=== PATIENT | female | born 1945 | race Caucasian/White ===

== ENCOUNTER → 2017-10-01 15:00 | Outpatient (CLI) | payer MEDICARE, SELFPAY ==
--- NOTE | 2017-10-01 | LES_PTH ---
PATIENT: MANJIT ESTRELLA LOC: [facility] U#:[id number] AGE/SX: 79/F ROOM: RE10/01/[address]: Dr. Heriberto Mcgovern MD : 1945 BED: DIS: SPEC #: [id number] RECD: 10/01/17 15:13 STATUS: ZEINA FOX #: [id number] PRABHA: 10/01/17 00:[address]: Heriberto Mcgovern DEPT: SURGICAL PATHOLOGY RECD BY: Brendan Fan ENTERED: 10/02/17 13:02 SP TYPE: Lesion OTHR DR: Dr. Hugo Lima MD Tissues: Skin of eyelid, NOS Procedures: Surgery Specimen Level IV HEADER OPERATION: Biopsy left nasal lid PRE-OP DIAGNOSIS: High suspicion for basal cell cancer TISSUE SUBMITTED: Left nasal eyelid MICROSCOPIC DIAGNOSIS Left nasal eyelid lesion, biopsy: Fragments of basal cell carcinoma. Solar elastosis. AM:nanda 10/03/17 COMMENT Case has been reviewed in consultation with Dr. Hughes who concurs with the above diagnosis. IDC:SJ MICROSCOPIC DESCRIPTION Slides are reviewed. GROSS DESCRIPTION Received in fixative is one container labeled with the patient's name and designated left lower lid. The specimen consists of two pieces of lopez-white soft tissue measuring in aggregate 0.7 x 0.3 x 0.1 cm. The specimen is totally submitted in one cassette. / SJ:nanda 10/02/17 TC:0 CPT: 65394
== END ==
PROVIDERS: Visit Provider Ophthalmology
DX: C44.119 Basal cell carcinoma of skin of left eyelid, including canthus (principal); L57.8 Other skin changes due to chronic exposure to nonionizing radiation
CPT/HCPCS: 88305

== ENCOUNTER 2020-07-07 23:49 | Emergency (ER) | payer MEDICARE, MEDICAID, SELFPAY ==
[2020-07-07 23:51] VITALS: BP 182/90; PULSE 80; RESP 15; TEMP 36.1; O2SAT 98; BMI 27.4
[2020-07-07 23:54] VITALS: BP 182/90; PULSE 79; RESP 16; O2SAT 97
--- NOTE | 2020-07-08 00:41 | CT_ITS ---
STUDY: CT BRAIN WITH AND WITHOUT CONTRAST REASON FOR EXAM: Female, 75 years old. Left-sided headache with dental infection RADIATION DOSAGE (If Supplied By Facility): CTDIvol = ( 44.99 ) mGy, DLP = ( 1580.97 ) mGycm TECHNIQUE: Transaxial CT imaging of the brain was performed pre and post contrast administration. The examination was performed with intravenous administration of IV 50mL Isovue-370. Individualized dose optimization techniques were used for this CT. COMPARISON: None. FINDINGS: Normal soft tissue structures. Normal calvarium. Normal size ventricles and extra-axial spaces for the patient''s age. There is minimal bilateral periventricular and subcortical white matter hypoattenuation which is symmetric in distribution. Normal basal ganglia and thalami. Normal brainstem. Normal cerebellum. There is no intracranial hemorrhage. There are no findings of an acute ischemic infarction. No enhancing lesion. There is minimal mucoperiosteal thickening of the paranasal sinuses. CT/Brain/Head W/WO Contrast IMPRESSION: 1. No evidence of an acute intracranial abnormality. 2. Mild bilateral periventricular and subcortical white matter chronic small vessel disease 3. Minimal chronic paranasal sinus disease Electronically Signed: Mark Alford MD at 2:20 EDT Tel , Service support ,
[2020-07-08 01:01] LABS: Absolute Lymphocyte Count 2.44 X10^3/uL (0.83-4.51); Absolute Neutrophil Count 4.2 X10^3/uL (2.0-7.7); Basophil# 0.07 X10^3/uL; Basophil% 0.9 % (0-1); Eosinophil# 0.21 X10^3/uL; Eosinophils% 2.7 % (0-5); Hematocrit 39.7 % (37-47); Lymphocyte # 2.44 X10^3/ul (0.83-4.51); Lymphocyte % 31.5 % (19-41); Mean Corp Hgb Conc 32.7 g/dL (32-36); Mean Corpuscular Hgb 29.7 pg (27.0-32.0); Mean Corpuscular Volume 90.6 fL (81-99); Mean Platelet Vol. 9.7 fl (6.2-12.0); Monocyte# 0.78 X10^3/uL; Monocyte% 10.1 % (0-10); NRBC Flagged by Analyzer 0 % (0-5); Neutrophil # 4.22 X10^3/uL (2.7-7.7); Neutrophil % 54.5 % (47-70); Platelet Count 358 K/mm3 (150-450); RBC Distribution Width CV 13.6 % (11.6-14.6); RBC Distribution Width SD 45.3 fl (35.1-43.9); Red Blood Count 4.38 M/mm3 (4.2-5.4); White Blood Count 7.7 K/mm3 (4.4-11.0)
--- NOTE | 2020-07-08 01:08 | EX.ED.DYSGE1 ---
HPI History of Present Illness Chief Complaint: Headache Informant: patient Onset/Context/Timing Onset: Weeks (1) Context: Gradual Onset Timing: Continuous Quality: aching Location: left side of head Current Severity: Moderate Maximum Severity: Moderate Worsened by: lying on left side Relieved by: nothing Associated Symptoms Associated Symptoms: dental pain Narrative Narrative: Patient states the left mandibular row of teeth have been really bothering her for several weeks. In the last week she has developed a headache gradual in onset that has been persistent, radiating into her left ear. She denies any focal neurologic symptoms, loss of consciousness, seizure activity, or vision changes/loss. She states she occasionally gets a tremor in one of her legs but she does not have that now. She denies any fevers or chills. She denies any sinus pressure/swelling or nasal discharge. She denies any confusion. No neck pain or stiffness. PFSH PFSH Medical History Chronic pain GERD (gastroesophageal reflux disease) History of skin cancer Hypertension Migraines Smoker Home Medications amoxicillin 500 mg PO TID #30 tab 07/08/20 [Rx Last Taken Unknown] hydrochlorothiazide 25 mg PO DAILY 07/08/20 [History Last Taken Unknown] lisinopril 40 mg PO DAILY 07/08/20 [History Last Taken Unknown] tramadol 50 mg PO Q6H PRN #12 tab 07/08/20 [Rx Last Taken Unknown] Allergy/AdvReac Type Severity Reaction Status Date / Time codeine Allergy Upset Verified 07/07/20 23:51 Stomach Tetanus Vaccines and Toxoid Allergy NEEDS Verified 07/07/20 23:51 FOLLOW-UP Surgical History Hx of hysterectomy Social History Smoking Status: Heavy Smoker (>10/day) ROS ROS ED Constitutional Constitutional ED: Denies chills or fever(s) Eyes Eyes: Denies change in vision, diplopia or discharge from eye(s) ENT ENT ED: Reports as per HPI, dental pain, ear pain left, headache(s) and mouth pain; Denies discharge from eye(s), ear discharge, epistaxis, facial pain, hoarseness, lip swelling, rhinorrhea or sore throat Cardiovascular Cardiovascular: Denies chest pain or palpitations Respiratory/Chest Respiratory/Chest: Denies cough or dyspnea Gastrointestinal Gastrointestinal: Denies abdominal pain, diarrhea, nausea or vomiting Genitourinary Genitourinary ED: Denies dysuria or hematuria Musculoskeletal Musculoskeletal: Denies back pain or neck pain Integumentary Denies abscess or rash Neurologic Neurologic: Reports as per HPI, headache(s) and tremor(s); Denies paresthesias, syncope, vertigo or weakness Psychiatric Psychiatric: Denies anxiety or suicidal thoughts EXAM Physical Exam Const Vital Signs: 07/07/20 23:51 07/07/20 23:54 Temperature 97.0 F L Temperature Source Temporal Pulse Rate 80 79 Respiratory Rate 15 16 Blood Pressure 182/90 H 182/90 H Blood Pressure Mean 120 120 Pulse Ox 98 97 Oxygen Delivery Method Room Air Room Air Positive well nourished and well developed General Appearance ED: well developed and NAD HEENT Reports TM's clear and moist mucous membranes HEENT Narrative: Left mandibular row of teeth are severely decayed. There is no discharge or bleeding or evidence of gingivitis but they are all tender. There is no abscess. No trismus. Floor of mouth is nondistended and soft, nontender. No objective facial asymmetry. No maxillary sinus tenderness or purulent nasal discharge. Mild tenderness at the left zygomatic arch only, no temporal tenderness. Mastoid is normal in appearance without erythema or swelling, it is nontender. No periauricular lymphadenopathy or submental or lymphadenopathy. No scalp rashes or lesions. Other than teeth, and minor zygomatic arch tenderness which is normal-appearing, basically HEENT exam is unremarkable. normocephalic and atraumatic Tympanic Membrane ED: Yes TM's clear Eyes PERRL and EOMs intact bilaterally Neck full ROM, no lymphadenopathy, supple and no JVD Chest Wall inspection of chest normal and palpation of chest normal Resp normal respiratory effort and clear to auscultation bilaterally Cardio regular rate, regular rhythm and no murmurs GI non-tender and non-distended Auscultation: normoactive bowel sounds Palpation: soft Back/Spine no CVA tenderness General Back: other FROM Extremity normal to inspection General Extremety ED: Negative for edema, pulses abnormal or tenderness General Extremity: Negative for edema or pulses abnormal Neuro oriented x3, CN's II-XII intact bilaterally and no sensory deficits noted Sensorium / Orientation: awake and alert Motor Exam: strength 5/5 throughout Psych mental status grossly normal and thought process normal Skin no rashes or lesions noted and no wounds MDM MDM MDM Narrative Medical decision making narrative: Given her dental infection that has been going on for some time and lack of an abscess, I performed CT of the head with and without contrast, to rule out emergent conditions including infection extending to other structures such as the mastoid, brain cavity, sinuses. This was all negative. She does not have temporal tenderness or any abnormality in this area including the temporal artery. She does not have any vision changes and I suspect this is more likely referred pain from her teeth given the negative CT then I do temporal arteritis. Prescribed antibiotics and analgesics and advised to follow-up with a dentist she was given a resource list. Lab Data Attestation: I reviewed the patient's lab results. Labs: Laboratory Results - last 24 hr 07/08/20 07/08/20 00:55 00:55 WBC 7.7 RBC 4.38 Hgb 13.0 Hct 39.7 MCV 90.6 MCH 29.7 MCHC 32.7 RDW Std Deviation 45.3 H RDW Coeff of Kirt 13.6 Plt Count 358 MPV 9.7 Immature Gran % (Auto) 0.300 Neut % (Auto) 54.5 Lymph % (Auto) 31.5 Dauphin % (Auto) 10.1 H Eos % (Auto) 2.7 Baso % (Auto) 0.9 Absolute Neuts (auto) 4.2 Absolute Lymphs (auto) 2.44 Nucleated RBC % 0 Sodium 138 Potassium 3.6 Chloride 106 Carbon Dioxide 29.0 Anion Gap 3 L BUN 17 Creatinine 0.93 Estim Creat Clear Calc 41.91 Est GFR (MDRD) Af Amer 75 Est GFR (MDRD) Non-Af 62 BUN/Creatinine Ratio 18.3 Glucose 112 H Calcium 9.2 Radiography Diagnostic Testing: Radiology Impression Brain CT 07/08/20 00:41 IMPRESSION: 1. No evidence of an acute intracranial abnormality. 2. Mild bilateral periventricular and subcortical white matter chronic small vessel disease 3. Minimal chronic paranasal sinus disease Electronically Signed: Mark Alford MD at 2:20 EDT Tel , Service support , Discharge Plan Triage Chief Complaint: Headache ED Provider: Julio Enciso Dx/Rx/DC Orders Clinical Impression: Infected dental caries, Cephalgia Instructions: ED Abscess Antibiotic Treatment Only Prescriptions: New amoxicillin 500 mg tablet 500 mg PO TID Qty: 30 RF: 0 tramadol 50 mg tablet 50 mg PO Q6H PRN (Reason: pain) Qty: 12 RF: 0 No Action lisinopril 10 mg Tablet 40 mg PO DAILY RF: 0 hydrochlorothiazide 25 mg Tablet 25 mg PO DAILY RF: 0 Primary Care Provider: Bryn Cardona Referrals: Bryn Cardona MD [Primary Care Provider] - Dentist,Your [STAFF PHYSICIAN] - As soon as possible Activity Restrictions/Additional Instructions: Your blood pressure was high in the emergency department. Make sure you follow-up for recheck when you are feeling better. Disposition Disposition: Home, self care
[2020-07-08 01:14] LABS: Anion Gap 3 (5-15); BUN 17 mg/dL (7-18); BUN/Creat Ratio 18.3 RATIO (10-20); Calcium,Total 9.2 mg/dL (8.5-10.1); Chloride 106 mmol/L (98-107); Creatinine, Serum 0.93 mg/dL (0.55-1.02); EST Glomerular Filtration Rate 62 mL/min (>60); Est Glom Filt Rate - Afr Amer 75 mL/min (>60); Estimated Creatinine Clearance 41.91 ml/min; Glucose 112 mg/dL (74-106); Potassium 3.6 mmol/L (3.5-5.1); Sodium Level 138 mmol/L (136-145)
[2020-07-08] MEDS: AMOXICILLIN 500 MG CAPSULE PO (03:06)
[2020-07-08] MEDS: traMADol 50 MG Tablet PO (03:06)
[2020-07-08] MEDS: Acetaminophen 500 MG Tablet 1000 MG PO (03:06)
[2020-07-08 03:56] VITALS: BP 153/90; PULSE 78; RESP 18; O2SAT 96
== END 2020-07-08 05:19 | disposition home or self-care (01) ==
PROVIDERS: Emergency Provider Emergency Medicine; PCP Family Medicine
DX: K04.7 Periapical abscess without sinus (principal); K02.9 Dental caries, unspecified; I10 Essential (primary) hypertension; K21.9 Gastro-esophageal reflux disease without esophagitis; G89.29 Other chronic pain; Z85.828 Personal history of other malignant neoplasm of skin; Z79.899 Other long term (current) drug therapy; Z87.891 Personal history of nicotine dependence
CPT/HCPCS: 70470; 80048; 85025; 96360; 96361; 99285; J7030; Q9967; A4216

== ENCOUNTER 2022-01-11 04:41 | Emergency (ER) | payer MEDICARE, MEDICAID, SELFPAY ==
[2022-01-11 04:42] VITALS: BP 129/58; PULSE 72; RESP 18; TEMP 36.6; O2SAT 97; BMI 23.4
--- NOTE | 2022-01-11 05:07 | RAD_ITS ---
STUDY: X-RAY - LEFT KNEE REASON FOR EXAM: Female, 76 years old. Injury/Pain TECHNIQUE: 4 view(s) of the knee. COMPARISON: None. FINDINGS: BONES: No fracture demonstrated. Osteopenic. Degenerative changes at all 3 joint compartments. JOINTS: No dislocation. SOFT TISSUES: Unremarkable. RAD/Knee 4 or More Views IMPRESSION: No evidence of fracture. Degenerative changes. Electronically Signed: Ana Maria Smith MD at 5:45 EST ,
--- NOTE | 2022-01-11 05:09 | EX.ED.DYSGE1 ---
HPI History of Present Illness Chief Complaint: Lower Extremity Injury Narrative Narrative: Patient is a 76 year old female with history of hypertension and CKD presenting with worsening left hip and knee pain. Patient states she has had hip and knee pain for years but usually she can take a little Tylenol or ibuprofen and be fine. She notes her symptoms been worse over the past week. She denies any falls or injuries. This morning she got up to use the restroom and her pain was so severe that she could not bear it. She did not fall but she could not get back in bed. She clipped her life alert and was brought to the ER. Did not have anything for pain prior to arrival. Denies any bowel or bladder incontinence. Denies any numbness or tingling. Denies any fever or chills. Has never had her hip or knee pain evaluated. She states she feels fine she does not move but it significantly worse if he is she tries to stand or weight-bear. This week she has been taking more ibuprofen and Tylenol but is not helping with her symptoms like it usually does. No other complaints at this time. Patient lives independently. Uses a cane as needed. PFSH PFSH Medical History Chronic pain GERD (gastroesophageal reflux disease) History of skin cancer Hypertension Migraines Smoker Home Medications hydrochlorothiazide 25 mg tablet 25 mg PO DAILY 07/08/20 [History Last Taken Unknown] lisinopril 10 mg tablet 40 mg PO DAILY 07/08/20 [History Last Taken Unknown] hydrocodone-acetaminophen 5-325mg 5mg-325mg 1 tab PO Q6H PRN pain 3 days #12 tabs 01/11/22 [Rx Last Taken Unknown] prednisone 20 mg tablet 40 mg PO DAILY #8 tabs 01/11/22 [Rx Last Taken Unknown] Allergy/AdvReac Type Severity Reaction Status Date / Time codeine Allergy Upset Verified 01/11/22 04:47 Stomach Tetanus Vaccines and Toxoid Allergy NEEDS Verified 01/11/22 04:47 FOLLOW-UP Surgical History Hx of hysterectomy Social History Smoking Status: Heavy Smoker (>10/day) ROS ROS ED Constitutional Constitutional ED: Denies chills or fever(s) Eyes Eyes: Denies change in vision ENT ENT ED: Denies sore throat Cardiovascular Cardiovascular: Denies chest pain or palpitations Respiratory/Chest Respiratory/Chest: Denies cough Gastrointestinal Gastrointestinal: Denies abdominal pain, diarrhea, nausea or vomiting Genitourinary Genitourinary ED: Denies dysuria or hematuria Musculoskeletal Musculoskeletal: Reports arthralgias and other Details: left hip and knee pain ; Denies back pain or neck pain Integumentary Denies rash Neurologic Neurologic: Denies headache(s), paresthesias or weakness Psychiatric Psychiatric: Denies anxiety Hematologic/Lymphatic Hematologic/Lymphatic: Denies easy bleeding or easy bruising EXAM Physical Exam Const Vital Signs: 01/11/22 04:42 Temperature 97.8 F Temperature Source Temporal Pulse Rate 72 Respiratory Rate 18 Blood Pressure 129/58 H Blood Pressure Mean 81 Pulse Ox 97 Oxygen Delivery Method Room Air Positive well nourished and well developed General Appearance ED: well developed and NAD HEENT Reports moist mucous membranes Negative for trauma Eyes PERRL and EOMs intact bilaterally Neck supple Chest Wall inspection of chest normal Resp normal respiratory effort and clear to auscultation bilaterally Cardio regular rate, regular rhythm and no murmurs GI normal to inspection, nondistended, normoactive bowel sounds and non-tender Extremity Extremity Narrative: Left hip pain, No rotational deformity. Pain with logroll. Pain with range of motion of the knee. No obvious effusion. 2+ bilateral DP pulses. General Extremety ED: Yes tenderness; Negative for edema General Extremity: Negative for edema Neuro oriented x3 and no sensory deficits noted Motor Exam: strength 5/5 throughout Psych mental status grossly normal Skin no rashes or lesions noted and no wounds MDM MDM MDM Narrative Medical decision making narrative: Patient evaluated for worsening of chronic left hip pain. She also has knee pain. Denies any fall or trauma. Is not able to ambulate today because of pain. Pain has been worsening for the past week. Has never really had her hip pain evaluated. She does have pain with range of motion of the hip. Hip x-ray as well knee x-ray obtained interpreted by myself as well as radiology. There is a questionable subtle femoral neck fracture as well as significant degenerative changes. CT of the hip is ordered to further evaluate. This does not show any fracture however there is severe degenerative changes of the left hip. Patient is given a dose of IM morphine in the ER as well as Tylenol. She is able to ambulate but is painful. Patient is offered admission for pain control however she states she would like to go home. Patient is given a walker in the ER. Is placed on a burst of prednisone and also started on a short course of [place] for pain control. Counseled on return precautions. She verbalizes agreement understand this plan. Discharged home in stable condition. Is given orthopedic for outpatient follow-up. Radiography Diagnostic Testing: Clinical Impression(s) from Imaging Studies Knee X-Ray 01/11/22 05:07 IMPRESSION: No evidence of fracture. Degenerative changes. Electronically Signed: Ana Maria Smith MD at 5:45 EST Reading Location ID and State: [id number] / [employer] Tel , Service support , Hip/Pelvis X-Ray 01/11/22 05:20 IMPRESSION: Relative foreshortening of the left femoral neck with no definite fracture visualized. Subtle femoral neck fracture difficult to exclude. CT may be helpful for further evaluation. Severe degenerative changes of the left hip. Electronically Signed: Ana Maria Smith MD at 5:48 EST , Pelvis CT 01/11/22 05:51 IMPRESSION: 1. No evidence of fracture. 2. Severe degenerative changes of the left hip. 3. Mild degenerative changes of the right hip. Electronically Signed: Ana Maria Smith MD at 6:35 EST , Discharge Plan Triage Chief Complaint: Lower Extremity Injury ED Provider: Maylin Ribeiro Dx/Rx/DC Orders Clinical Impression: Joint pain of left hip on movement, Difficulty walking, Acute pain of left knee Instructions: ED Arthralgia Prescriptions: New prednisone 20 mg tablet 40 mg PO DAILY Qty: 8 0RF hydrocodone-acetaminophen 5-325 mg tablet 1 tab PO Q6H PRN (Reason: pain) 3 Days Qty: 12 0RF No Action lisinopril 10 mg Tablet 40 mg PO DAILY hydrochlorothiazide 25 mg Tablet 25 mg PO DAILY Primary Care Provider: Bryn Cardona Referrals: Bryn Cardona MD [Primary Care Provider] - Kin Mendez MD [Med Staff - Active Staff] - As soon as possible Disposition Disposition: Home, Self Care
[2022-01-11] MEDS: Acetaminophen 500 MG Tablet PO (05:10)
--- NOTE | 2022-01-11 05:20 | RAD_ITS ---
STUDY: X-RAY - PELVIS AND LEFT HIP REASON FOR EXAM: Female, 76 years old. Injury/Pain TECHNIQUE: 3 views of the pelvis and hip. COMPARISON: None. FINDINGS: There is foreshortening of the left femoral neck which can be seen with fracture. No definite fracture is visualized. Marked joint space narrowing of the left hip especially at the superior aspect, with subchondral sclerosis and osteophytes. No dislocation of the hips. Degenerative changes lower lumbar spine. RAD/HIP, UNI W/ Pelvis 2-3 Views IMPRESSION: Relative foreshortening of the left femoral neck with no definite fracture visualized. Subtle femoral neck fracture difficult to exclude. CT may be helpful for further evaluation. Severe degenerative changes of the left hip. Electronically Signed: Ana Maria Smith MD at 5:48 EST ,
--- NOTE | 2022-01-11 05:51 | CT_ITS ---
STUDY: CT PELVIS WITHOUT CONTRAST REASON FOR EXAM: Female, 76 years old. hip fracture RADIATION DOSAGE (If Supplied By Facility): CTDIvol = ( 13.97 ) mGy, DLP = ( 449.88 ) mGycm TECHNIQUE: Transaxial imaging of the pelvis was performed with oral contrast, and without intravenous administration of contrast material. Individualized dose optimization techniques were used for this CT. COMPARISON: Left hip x-rays earlier. FINDINGS: No fracture demonstrated. There is severe joint space narrowing of the left hip joint superiorly, with articular surface of the femoral head in direct contact with the acetabulum. Subchondral sclerosis and subchondral cyst formation with osteophytes at the acetabulum and femoral head/neck. Mild degenerative changes of the right hip with subchondral sclerosis and cysts mostly at the acetabular component. No dislocation at the hips. Degenerative changes in the lower lumbar spine. No free fluid or hematoma within the pelvis. CT/Pelvis without IV Contrast IMPRESSION: 1. No evidence of fracture. 2. Severe degenerative changes of the left hip. 3. Mild degenerative changes of the right hip. Electronically Signed: Ana Maria Smith MD at 6:35 EST ,
[2022-01-11] MEDS: Morphine 4 MG/ML Syringe IM (07:18)
[2022-01-11] MEDS: predniSONE 20 MG Tablet 60 MG PO (08:07)
== END 2022-01-11 08:14 | disposition home or self-care (01) ==
PROVIDERS: Emergency Provider Emergency Medicine; PCP Family Medicine; Visit Provider Emergency Medicine
DX: M16.12 Unilateral primary osteoarthritis, left hip (principal); R26.2 Difficulty in walking, not elsewhere classified; F17.200 Nicotine dependence, unspecified, uncomplicated; N18.9 Chronic kidney disease, unspecified; I12.9 Hypertensive chronic kidney disease with stage 1 through stage 4 chronic kidney disease, or unspecified chronic kidney disease; M25.562 Pain in left knee
CPT/HCPCS: 72192; 73502; 73564; 96372; 99284

== ENCOUNTER 2022-01-29 15:23 | Emergency (ER) | payer MEDICAID, MEDICARE, SELFPAY ==
[2022-01-29 15:24] VITALS: BP 133/65; PULSE 73; RESP 16; TEMP 36.8; O2SAT 97; BMI 27.3
--- NOTE | 2022-01-29 15:36 | EX.ED.DYSGE1 ---
HPI History of Present Illness Chief Complaint: Lower Extremity Injury Narrative Narrative: Patient presents with right buttock and groin pain. She has chronic pain in her left hip and I believe she has been favoring her right side and developed pain on that region. No known trauma. No fever or chills. She has no back pain. She has no radicular symptoms. No bowel or bladder compromise. No urinary retention symptoms. PFSH PFSH Medical History Chronic pain GERD (gastroesophageal reflux disease) History of skin cancer Hypertension Migraines Smoker Home Medications hydrochlorothiazide 25 mg tablet 25 mg PO DAILY 07/08/20 [History Last Taken Unknown] lisinopril 10 mg tablet 40 mg PO DAILY 07/08/20 [History Last Taken Unknown] hydrocodone-acetaminophen 5-325mg 5mg-325mg 1 tab PO Q6H PRN pain 3 days #12 tabs 01/29/22 [Rx Last Taken Unknown] meloxicam 15 mg tablet 15 mg PO DAILY 01/29/22 [History Last Taken Unknown] Allergy/AdvReac Type Severity Reaction Status Date / Time codeine Allergy Upset Verified 01/29/22 15:24 Stomach Tetanus Vaccines and Toxoid Allergy NEEDS Verified 01/29/22 15:24 FOLLOW-UP Surgical History Hx of hysterectomy Social History Smoking Status: Heavy Smoker (>10/day) ROS ROS ED ROS Narrative Past medical history: Reviewed Medications: Reviewed Social history: Smoker Review of systems: All systems negative except as indicated General: No fever Cardiovascular: No cyanosis Respiratory: No shortness of breath or cough Gastrointestinal: No abdominal pain Musculoskeletal: As in HPI Skin: No rash Neurological: No memory loss, confusion or any focal weakness Psych: No recent behavioral changes Hematologic: No easy bleeding or easy bruising EXAM Physical Exam Narrative Exam Narrative: Physical exam General: Well nourished, Well developed, No Acute Distress Head: Normocephalic, Atraumatic Eyes: Conjunctiva not pale Cardiovascular: Regular rate, Regular rhythm Respiratory: No distress, CTA bilaterally Abdomen: Soft, Nontender, Nondistended Back: Nontender, Normal Inspection. Negative for: CVA tenderness Extremities: There is buttock tenderness in the SI joint region, as well as groin tenderness. No significant tenderness with logrolling or flexion extension of the hip. 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 This is interpreted by me. Treatment and Re-Evaluation Narrative: Patient is found by radiologist to have some arthritic changes in the SI joint, I believe she likely has sacroiliitis based on my exam. We will treat with renal analgesics, she has an appointment with orthopedics. Discharge Plan Triage Chief Complaint: Lower Extremity Injury ED Provider: Humberto Friend Dx/Rx/DC Orders Clinical Impression: Sacroiliitis, Acute hip pain Instructions: ED Sacroiliitis Prescriptions: New hydrocodone-acetaminophen 5-325 mg tablet 1 tab PO Q6H PRN (Reason: pain) 3 Days Qty: 12 0RF No Action lisinopril 10 mg Tablet 40 mg PO DAILY hydrochlorothiazide 25 mg Tablet 25 mg PO DAILY meloxicam 15 mg tablet 15 mg PO DAILY Primary Care Provider: Bryn Cardona Referrals: Bryn Cardona MD [Primary Care Provider] - 2 Days Disposition Disposition: Home, Self Care
[2022-01-29] MEDS: HYDROcodone Bitartrate/Apap 5/325 Tablet PO (15:40)
--- NOTE | 2022-01-29 15:50 | RAD_ITS ---
STUDY: X-RAY - PELVIS AND RIGHT HIP REASON FOR EXAM: Female, 76 years old. Severe pain TECHNIQUE: 3 views of the pelvis and hip. COMPARISON: None. FINDINGS: There is a non-specific bowel gas pattern. Normal visualized soft tissue structures. There is narrowing with cortical sclerosis and osteophyte formation of the sacroiliac joint consistent with degenerative osteoarthritic changes. Normal bilateral superior and inferior pubic rami. Normal pubic symphysis. Normal bilateral ischial tuberosities. Normal visualized femoral head. Normal acetabulum. There is mild articular joint space narrowing of the hip. There is severe endstage arthrosis of the left hip with obliteration of the joint space superiorly and laterally with subchondral sclerosis and cyst formation on the femoral head and subchondral sclerotic change on the acetabulum. These findings are consistent with AVN. 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
--- NOTE | 2022-01-29 17:37 | ED.RN ---
REVIEWED DC WITH PT. REPORTS VICODIN ISNT TOUCHING PAIN. DR NAVA AWARE AND TALKING WITH PT.
--- NOTE | 2022-01-29 17:55 | CM.ED ---
TARIQ Note Referral Source: MD Referral Reason: Services for patient in the home TARIQ met with patient. Patient said that she used to have housekeeping but her insurance person could not find anyone to help her with the housekeeping. Patient said that she had housekeeping assistance in the past but could not recall the name of the provider. SW asked about what services she needs and patient said light housekeeping and cooking. SW discussed Meals on Wheels and patient said did you ever try the food?. Patient said that she makes a big meal and then puts the small portions away in the freezer for later use. TARIQ gave handout regarding [facility] and explained that it was health couching and patient voiced need for housekeeping and cooking services only. Patient then provided the name of her insurance person which was Mary Daley from [facility] [phone]. TARIQ provided patient with resources on [employer] and educated on assisted living and patient said I know about that. TARIQ will ask high acuity employment case manager to see if she has any resources for patient. TARIQ sent email to Karine Carty regarding patient. TARIQ left voice message for Melody Chicas [phone] regarding patient being seen in the ED. Plan: Resources Provided Shania LAU
[2022-01-29 18:14] VITALS: BP 120/78; PULSE 87; RESP 16; O2SAT 98
--- NOTE | 2022-01-31 11:47 | CM.ED ---
TARIQ Note TARIQ got a voice mail from Mary Daley ([facility]) this morning regarding Jodi Smith. She spoke to patient and patient declined home meals, respite and adult day care. Mary said that they are working with her on staffing opportunities. She requested the discharge summary from the ED and TARIQ faxed the d/c to Mary Daley at [phone] (fax) . Mary's direct number is [phone]. Shania LAU
== END 2022-01-29 18:48 | disposition home or self-care (01) ==
PROVIDERS: Emergency Provider Emergency Medicine; PCP Family Medicine; Visit Provider Emergency Medicine
DX: M46.1 Sacroiliitis, not elsewhere classified (principal); G89.29 Other chronic pain; M25.552 Pain in left hip; I10 Essential (primary) hypertension; F17.200 Nicotine dependence, unspecified, uncomplicated
CPT/HCPCS: 73502; 99284

== ENCOUNTER 2022-02-02 21:29 | Observation (INO) | payer MEDICARE, MEDICAID, SELFPAY ==
[2022-02-02 21:29] VITALS: BP 173/71; PULSE 65; RESP 16; TEMP 36.9; O2SAT 97; BMI 26.9
[2022-02-02] MEDS: fentaNYL 100 MCG/2 ML Ampul 25 MCG IV ×2 (22:00→23:58)
[2022-02-02] MEDS: Ondansetron 4 MG/2 ML Vial IV (22:00)
[2022-02-02 22:02] VITALS: O2SAT 97
[2022-02-02 22:08] LABS: Absolute Lymphocyte Count 1.99 X10^3/uL (0.83-4.51); Absolute Neutrophil Count 2.1 X10^3/uL (2.0-7.7); Basophil# 0.05 X10^3/uL; Eosinophil# 0.12 X10^3/uL; Eosinophils% 2.5 % (0-5); Hematocrit 36.3 % (37-47); Hemoglobin 11.8 g/dL (12.0-15.0); Lymphocyte # 1.99 X10^3/ul (0.83-4.51); Lymphocyte % 40.9 % (19-41); Mean Corp Hgb Conc 32.5 g/dL (32-36); Mean Corpuscular Hgb 30.2 pg (27.0-32.0); Mean Corpuscular Volume 92.8 fL (81-99); Mean Platelet Vol. 9.9 fl (6.2-12.0); Monocyte# 0.62 X10^3/uL; Monocyte% 12.7 % (0-10); NRBC Flagged by Analyzer 0 % (0-5); Neutrophil # 2.08 X10^3/uL (2.7-7.7); Neutrophil % 42.7 % (47-70); Platelet Count 220 K/mm3 (150-450); RBC Distribution Width CV 13.5 % (11.6-14.6); RBC Distribution Width SD 46.4 fl (35.1-43.9); Red Blood Count 3.91 M/mm3 (4.2-5.4); White Blood Count 4.9 K/mm3 (4.4-11.0)
[2022-02-02 22:25] LABS: Anion Gap 3 (5-15); BUN 9 mg/dL (7-18); BUN/Creat Ratio 8.6 RATIO (10-20); Calcium,Total 8.6 mg/dL (8.5-10.1); Chloride 107 mmol/L (98-107); Creatinine, Serum 1.05 mg/dL (0.55-1.02); EST Glomerular Filtration Rate 54 mL/min (>60); Est Glom Filt Rate - Afr Amer 65 mL/min (>60); Estimated Creatinine Clearance 34.92 ml/min; Glucose 98 mg/dL (74-106); Potassium 3.5 mmol/L (3.5-5.1); Sodium Level 138 mmol/L (136-145)
--- NOTE | 2022-02-02 22:25 | RAD_ITS ---
STUDY: X-RAY - LEFT KNEE REASON FOR EXAM: Female, 76 years old. fall TECHNIQUE: 4 view(s) of the knee. COMPARISON: 01/11/2022 FINDINGS: Normal visualized distal femur. Normal visualized proximal tibia and fibula. Normal proximal tibiofibular articulation. There is mild degenerative arthrosis of the medial femorotibial compartment. There is mild degenerative arthrosis of the lateral femorotibial compartment. Normal patellofemoral articulation. 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 The soft tissue structures are unremarkable. RAD/Knee 4 or More Views IMPRESSION: No acute fracture or dislocation. Electronically Signed: Brenadn Bullard MD at 22:54 EST ,
--- NOTE | 2022-02-02 22:25 | RAD_ITS ---
STUDY: X-RAY - RIGHT TIBIA AND FIBULA REASON FOR EXAM: Female, 76 years old. fall TECHNIQUE: 2 view(s) of the tibia and fibula were obtained. COMPARISON: None. FINDINGS: Normal visualized tibia. Normal visualized fibula. The soft tissue structures are unremarkable. RAD/Tibia & Fibula 2 Views IMPRESSION: Normal x-ray examination of the tibia and fibula. Electronically Signed: Brendan Bullard MD at 22:55 EST ,
--- NOTE | 2022-02-02 22:25 | RAD_ITS ---
STUDY: X-RAY - PELVIS REASON FOR EXAM: Female, 76 years old. fall TECHNIQUE: One view of the pelvis was obtained. COMPARISON: 01/29/2022 FINDINGS: There is a non-specific bowel gas pattern. Normal visualized soft tissue structures. Normal bilateral iliac wings, sacroiliac joints and visualized sacrum. Normal visualized bilateral superior and inferior pubic rami. Normal pubic symphysis. Normal ischial tuberosities. Normal visualized right femoral head. Normal right acetabulum. There is mild articular joint space narrowing of the right hip. There are osteoarthritic changes of the left femoral head with marginal osteophyte formation. There is osteoarthritic spur formation of the left acetabular rim. There is severe articular joint space narrowing of the left hip. RAD/Pelvis 1 or 2 Views IMPRESSION: 1. No acute fracture or dislocation. 2. Mild right hip arthrosis. 3. Severe left hip arthrosis. Electronically Signed: Brendan Bullard MD at 22:53 EST ,
--- NOTE | 2022-02-02 22:25 | RAD_ITS ---
STUDY: X-RAY - RIGHT FEMUR REASON FOR STUDY: Female, 76 years old. fall TECHNIQUE: 2 view(s) of the femur. COMPARISON: None. FINDINGS: Normal visualized femur. Normal visualized soft tissue structure. RAD/Femur Min 2 Views IMPRESSION: Normal x-ray examination of the femur. Electronically Signed: Brendan Bullard MD at 22:56 EST ,
--- NOTE | 2022-02-02 22:45 | ED.VIS.FALL ---
HPI HPI - Fall History of Present Illness Chief Complaint: Fall Informant: patient and EMS Occured/Mechanism Occurred: Today Narrative Narrative: Patient present secondary to lower extremity pain after 2 falls at home today. She states that she fell in the tub and then fell after getting out of her bath. She took a pain pill this afternoon but tonight has had increasing pain in her lower extremities and had difficulty getting out of her chair. She called EMS. She does live alone. She denies striking her head or loss of consciousness. PFSH PFSH Medical History Chronic pain GERD (gastroesophageal reflux disease) History of skin cancer Hypertension Migraines Smoker Home Medications hydrochlorothiazide 25 mg tablet 25 mg PO DAILY 07/08/20 [History Last Taken Unknown] lisinopril 10 mg tablet 40 mg PO DAILY 07/08/20 [History Last Taken Unknown] hydrocodone-acetaminophen 5-325mg 5mg-325mg 1 tab PO Q6H PRN pain 3 days #12 tabs 01/29/22 [Rx Last Taken Unknown] meloxicam 15 mg tablet 15 mg PO DAILY 01/29/22 [History Last Taken Unknown] Allergy/AdvReac Type Severity Reaction Status Date / Time codeine Allergy Upset Verified 02/02/22 21:34 Stomach Tetanus Vaccines and Toxoid Allergy NEEDS Verified 02/02/22 21:34 FOLLOW-UP Surgical History Hx of hysterectomy Social History Smoking Status: Heavy Smoker (>10/day) ROS ROS ED Constitutional Constitutional ED: Denies chills or fever(s) Eyes Eyes: Denies change in vision or discharge from eye(s) ENT ENT ED: Denies discharge from eye(s), rhinorrhea or sore throat Cardiovascular Cardiovascular: Denies chest pain or palpitations Respiratory/Chest Respiratory/Chest: Denies cough or dyspnea Gastrointestinal Gastrointestinal: Denies abdominal pain, nausea or vomiting Genitourinary Genitourinary ED: Denies dysuria Musculoskeletal Musculoskeletal: Reports extremity pain; Denies back pain Integumentary Denies Abrasions or rash Neurologic Neurologic: Denies headache(s) or weakness Psychiatric Psychiatric: Denies anxiety or depression Allergic/Immunologic Allergic/Immunologic ED: Denies lip swelling or urticaria EXAM Physical Exam Const Vital Signs: 02/02/22 21:29 02/02/22 22:02 Temperature 98.5 F Temperature Source Temporal Pulse Rate 65 Respiratory Rate 16 Respiratory Effort Normal Non-Labored Respiratory Pattern Normal Blood Pressure 173/71 H Blood Pressure Mean 105 Pulse Ox 97 97 Oxygen Delivery Method Room Air Room Air Positive well nourished and well developed General Appearance ED: well developed HEENT Reports normocephalic and head/scalp atraumatic Eyes PERRL and EOMs intact bilaterally Neck supple Chest Wall inspection of chest normal and palpation of chest normal Resp normal respiratory effort and clear to auscultation bilaterally Cardio regular rate and regular rhythm GI normal to inspection, nondistended, normoactive bowel sounds Palpation: soft Back/Spine no CVA tenderness Extremity Extremity Narrative: Small skin abrasion over the anterior right knee. No bony tenderness to this area. Patient has equal leg lengths. She does have right hip pain with logroll. She has mild tenderness of the left knee. No significant edema, erythema, abrasion, ecchymosis noted. Strong distal pulses are noted with good sensation. Neuro oriented x3 and no sensory deficits noted Sensorium / Orientation: alert Psych mental status grossly normal Skin Skin Narrative: Right knee abrasion as noted above. MDM MDM MDM Narrative Medical decision making narrative: Lab work obtained and patient sent for x-rays of the lower extremities. Patient given fentanyl for pain. Lab Data Labs: Laboratory Results - last 24 hr 02/02/22 02/02/22 22:00 22:00 WBC 4.9 RBC 3.91 L Hgb 11.8 L Hct 36.3 L MCV 92.8 MCH 30.2 MCHC 32.5 RDW Std Deviation 46.4 H RDW Coeff of Kirt 13.5 Plt Count 220 MPV 9.9 Immature Gran % (Auto) 0.200 Neut % (Auto) 42.7 L Lymph % (Auto) 40.9 [place] % (Auto) 12.7 H Eos % (Auto) 2.5 Baso % (Auto) 1.0 Absolute Neuts (auto) 2.1 Absolute Lymphs (auto) 1.99 Nucleated RBC % 0 Sodium 138 Potassium 3.5 Chloride 107 Carbon Dioxide 28.0 Anion Gap 3 L BUN 9 Creatinine 1.05 H Estim Creat Clear Calc 34.92 Est GFR (MDRD) Af Amer 65 Est GFR (MDRD) Non-Af 54 L BUN/Creatinine Ratio 8.6 L Glucose 98 Calcium 8.6 Radiography Diagnostic Testing: Clinical Impression(s) from Imaging Studies Femur X-Ray 02/02/22 22:25 IMPRESSION: Normal x-ray examination of the femur. Electronically Signed: Brendan Bullard MD at 22:56 EST Reading Location ID and State: [facility] [employer] [facility] , Service support , Knee X-Ray 02/02/22 22:25 IMPRESSION: No acute fracture or dislocation. Electronically Signed: Brendan Bullard MD at 22:54 EST Reading Location ID and State: [facility] / [employer] [facility] , Service support , Pelvis X-Ray 02/02/22 22:25 IMPRESSION: 1. No acute fracture or dislocation. 2. Mild right hip arthrosis. 3. Severe left hip arthrosis. Electronically Signed: Brendan Bullard MD at 22:53 EST Reading Location ID and State: [facility] / [employer] [facility] , Service support , Tibia/Fibula X-Ray 02/02/22 22:25 IMPRESSION: Normal x-ray examination of the tibia and fibula. Electronically Signed: Brendan Bullard MD at 22:55 EST Reading Location ID and State: [facility] / [employer] [facility] , Service support , Treatment and Re-Evaluation Narrative: Pelvis x-ray, right femur, right tib-fib, left knee x-rays are all reviewed by myself and reveal no obvious fracture or acute abnormality. Radiology interpretation is reviewed and agree there is no evidence of acute fracture. She does have severe arthrosis in the left hip and mild arthrosis of the right hip. On repeat evaluation patient states her pain is slightly improved. She lives alone and cannot get up and around to take care of herself given this pain. I recommended observation overnight for pain control and have physical therapy work with her in the morning. I will speak with the hospitalist. Discharge Plan Triage Chief Complaint: Fall ED Provider: Mariluz Jimenez Dx/Rx/DC Orders Clinical Impression: Fall, Contusion of hip, Declining functional status Prescriptions: No Action lisinopril 10 mg Tablet 40 mg PO DAILY hydrochlorothiazide 25 mg Tablet 25 mg PO DAILY meloxicam 15 mg tablet 15 mg PO DAILY hydrocodone-acetaminophen 5-325 mg tablet 1 tab PO Q6H PRN (Reason: pain) 3 Days Qty: 12 0RF Primary Care Provider: Bryn Cardona Referrals: Bryn Cardona MD [Primary Care Provider] - Disposition Disposition: Acute Care Hospital [facility]
[2022-02-02 23:42] VITALS: BP 150/59; PULSE 60; RESP 16; O2SAT 96
--- NOTE | 2022-02-03 00:12 | PCM.HP.STD ---
HPI - General General Date of Admission: 02/03/22 Date of Service: 02/03/22 Chief Complaint: Multiple Falls HPI Narrative MANJIT ESTRELLA, is a 76 F with a significant history of chronic pain and hypertension who presents to the emergency department with multiple falls on the same day of presentation. Patient fell 2 times on the same day of presentation. The first fall was in the bathtub and the other fall was outside the bathtub. She reports pain in her left knee; pain in her right armpit; and pain in her entire right lower extremities. She attributes this pain to the falls. She has bruises from the falls. Because of pain associated with a fall she has difficulty getting up. At baseline she uses a Rollator She had some Steuben at home but that Steuben did not give her any relief. [facility] Medical History Chronic pain GERD (gastroesophageal reflux disease) History of skin cancer Hypertension Migraines Smoker Home Medications hydrochlorothiazide 25 mg tablet 25 mg PO DAILY 07/08/20 [History Last Taken Unknown] lisinopril 10 mg tablet 40 mg PO DAILY 07/08/20 [History Last Taken Unknown] hydrocodone-acetaminophen 5-325mg 5mg-325mg 1 tab PO Q6H PRN pain 3 days #12 tabs 01/29/22 [Rx Last Taken Unknown] meloxicam 15 mg tablet 15 mg PO DAILY 01/29/22 [History Last Taken Unknown] Allergy/AdvReac Type Severity Reaction Status Date / Time codeine Allergy Upset Verified 02/02/22 21:34 Stomach Tetanus Vaccines and Toxoid Allergy NEEDS Verified 02/02/22 21:34 FOLLOW-UP Family History Other COPD (chronic obstructive pulmonary disease) Surgical History Hx of hysterectomy Social History Smoking Status: Heavy Smoker (>10/day) ROS ROS Narrative Pertinent positives and pertinent negatives as noted in HPI. All other systems were reviewed and are negative Vital Signs Vital Signs Vital Signs: 02/02/22 21:29 02/02/22 22:02 02/02/22 23:42 Temperature 98.5 F Temperature Source Temporal Pulse Rate 65 60 Respiratory Rate 16 16 Respiratory Effort Normal Non-Labored Respiratory Pattern Normal Blood Pressure 173/71 H 150/59 H Blood Pressure Mean 105 89 Pulse Ox 97 97 96 Oxygen Delivery Method Room Air Room Air Room Air Weight Weight: 66.8 kg Body Mass Index (BMI) 26.9 Physical Exam Narrative Physical exam: General: Well-nourished, well-developed. Head: Normocephalic, atraumatic, no tenderness Eyes: Vision is grossly intact. EOMI ENT, no trauma, moist mucous membranes, no rhinorrhea Neck: Nontender, No thyromegaly. CVS: Regular rate and rhythm. S1-S2 present. No murmur, gallop or rub. Respiratory : clear to auscultation bilaterally, chest wall nontender, no wheezing Abdomen: Soft, nontender, nondistended, normal bowel sounds, no masses : Deferred Back: Nontender, no CVA tenderness, no midline spinal tenderness, deformities, step-offs Extremities: Can raise left lower extremity. Reduce range of motion of right lower extremity secondary to pain. Skin: Bruise on the right armpit; bruise on right knee; bruise on left foot Normal color. Neuro: Alert, oriented, cranial nerves II through XII grossly intact. Psychiatry: Normal mood. Normal affect. Not depressed. Not anxious. Results Lab / Micro Data Result Diagrams: 02/02/22 22:00 02/02/22 22:00 Labs: Laboratory Results - last 24 hr 02/02/22 22:00: WBC 4.9, RBC 3.91 L, Hgb 11.8 L, Hct 36.3 L, MCV 92.8, MCH 30.2, MCHC 32.5, RDW Std Deviation 46.4 H, RDW Coeff of Kirt 13.5, Plt Count 220, MPV 9.9, Immature Gran % (Auto) 0.200, Neut % (Auto) 42.7 L, Lymph % (Auto) 40.9, [place] % (Auto) 12.7 H, Eos % (Auto) 2.5, Baso % (Auto) 1.0, Absolute Neuts (auto) 2.1, Absolute Lymphs (auto) 1.99, Nucleated RBC % 0 02/02/22 22:00: Sodium 138, Potassium 3.5, Chloride 107, Carbon Dioxide 28.0, Anion Gap 3 L, BUN 9, Creatinine 1.05 H, Estim Creat Clear Calc 34.92, Est GFR (MDRD) Af Amer 65, Est GFR (MDRD) Non-Af 54 L, BUN/Creatinine Ratio 8.6 L, Glucose 98, Calcium 8.6 Radiology Impression Femur X-Ray 02/02/22 22:25 IMPRESSION: Normal x-ray examination of the femur. Electronically Signed: Brendan Bullard MD at 22:56 EST Reading Location ID and State: [facility] / [facility] , Service support , Knee X-Ray 02/02/22 22:25 IMPRESSION: No acute fracture or dislocation. Electronically Signed: Brendan Bullard MD at 22:54 EST Reading Location ID and State: [employer] [facility] , Service support , Pelvis X-Ray 02/02/22 22:25 IMPRESSION: 1. No acute fracture or dislocation. 2. Mild right hip arthrosis. 3. Severe left hip arthrosis. Electronically Signed: Brendan Bullard MD at 22:53 EST Reading Location ID and State: [facility] , Service support , Tibia/Fibula X-Ray 02/02/22 22:25 IMPRESSION: Normal x-ray examination of the tibia and fibula. Electronically Signed: Brendan Bullard MD at 22:55 EST Reading Location ID and State: [facility] , Service support , Assessment & Plan Assessment/Plan (1) Multiple falls: (2) Acute hip pain: (3) Hypertension: PLAN: Plan Multiple falls and debility PT and OT to work with patient. Case management consult. From review of records showed no vitamin D level and vitamin B12 level in hospital system. Vitamin B12 and vitamin D ordered. Acute R hip pain Home Steuben continued. Home meloxicam continued. As needed morphine ordered. Tibia/fibula x-ray, pelvis x-ray, knee x-ray and femur x-ray was visualized and independently interpreted. No acute pathology seen. I agree with radiologist interpretation. Will check pelvic CT for occult fractures of right pelvis/hip. Hypertension Blood pressure is not within goal Lisinopril and hydrochlorothiazide continued. As needed hydralazine ordered. Trend blood pressure and adjust blood pressure medications. Anemia Hemoglobin of 11.8, mild, chronicity uncertain. Hemoglobin on 07/08/2020 was 13. Trend CBC. CKD stage IIIb Stable. DVT prophylaxis Subcutaneous Lovenox ordered. Charges/Coding Visit Charges OBSV E&M: 07634 Initial observation care L3
[2022-02-03 00:14] VITALS: BP 150/59; PULSE 60; RESP 16; TEMP 36.7; O2SAT 96
[2022-02-03 02:29] VITALS: BMI 25.2
--- NOTE | 2022-02-03 02:29 | CT_ITS ---
INDICATION: R hip pain EXAMINATION: CT PELVIS BONE - CT Pelvis W/O Contrast Injection TECHNIQUE: Routine noncontrast bone CT protocol was performed of the pelvis. 2-D reformats were performed by the technologist. A radiation dose optimization technique was used for this scan. IV Contrast dosage and agent: None. COMPARISON: CT pelvis 01/11/2022. FINDINGS: SOFT TISSUES: Moderate atherosclerotic calcifications. Status post hysterectomy. Colonic diverticulosis without discrete evidence of acute diverticulitis. Mild increased stool. Normal appendix. No soft tissue swelling or gas. No radiopaque foreign body. BONES/JOINTS: No acute fracture or subluxation. Normal alignment. Severe joint space narrowing, subchondral sclerosis, osteophytosis and subchondral cystic changes in the left hip and mild similar degenerative changes in the right hip, similar compared to the prior. CT/Pelvis without IV Contrast IMPRESSION: 1. No acute fracture or dislocation. If there is continued clinical concern for occult fracture consider further characterization with MRI of the hip. 2. Severe left and mild right hip osteoarthritic changes, similar compared to the prior. Electronically Signed: Luis A Ashley MD at 4:17 EST ,
[2022-02-03 02:48] VITALS: BP 159/72; PULSE 71; RESP 18; TEMP 36.2; O2SAT 96
[2022-02-03] MEDS: Morphine 2 MG/ML Syringe IV ×2 (02:58→07:49)
[2022-02-03] MEDS: 0.9% Saline Lock 10 ML Syringe IV (02:58)
[2022-02-03 03:07] VITALS: O2SAT 96
[2022-02-03 03:20] LABS: Absolute Lymphocyte Count 1.52 X10^3/uL (0.83-4.51); Absolute Neutrophil Count 2.2 X10^3/uL (2.0-7.7); Basophil# 0.04 X10^3/uL; Basophil% 0.9 % (0-1); Eosinophils% 2.3 % (0-5); Hematocrit 37.1 % (37-47); Lymphocyte # 1.52 X10^3/ul (0.83-4.51); Lymphocyte % 34.6 % (19-41); Mean Corp Hgb Conc 32.3 g/dL (32-36); Mean Corpuscular Hgb 30.2 pg (27.0-32.0); Mean Corpuscular Volume 93.2 fL (81-99); Mean Platelet Vol. 9.7 fl (6.2-12.0); Monocyte# 0.56 X10^3/uL; Monocyte% 12.8 % (0-10); NRBC Flagged by Analyzer 0 % (0-5); Neutrophil # 2.16 X10^3/uL (2.7-7.7); Neutrophil % 49.2 % (47-70); Platelet Count 212 K/mm3 (150-450); RBC Distribution Width CV 13.5 % (11.6-14.6); RBC Distribution Width SD 46.5 fl (35.1-43.9); Red Blood Count 3.98 M/mm3 (4.2-5.4); White Blood Count 4.4 K/mm3 (4.4-11.0)
[2022-02-03 03:33] LABS: Anion Gap 6 (5-15); BUN 7 mg/dL (7-18); BUN/Creat Ratio 7.3 RATIO (10-20); Calcium,Total 8.7 mg/dL (8.5-10.1); Chloride 106 mmol/L (98-107); Creatinine, Serum 0.96 mg/dL (0.55-1.02); EST Glomerular Filtration Rate 60 mL/min (>60); Est Glom Filt Rate - Afr Amer 72 mL/min (>60); Glucose 99 mg/dL (74-106); Potassium 3.5 mmol/L (3.5-5.1); Sodium Level 137 mmol/L (136-145)
[2022-02-03 07:41] VITALS: BP 158/75; PULSE 65; RESP 18; TEMP 36.8; O2SAT 95
[2022-02-03] MEDS: Enoxaparin 40 MG/0.4 ML Syringe SC (09:50)
[2022-02-03] MEDS: Lisinopril 40 MG Tablet PO (09:51)
[2022-02-03] MEDS: hydroCHLOROthiazide 25 MG Tablet PO (09:51)
[2022-02-03] MEDS: Meloxicam 15 MG Tablet PO (09:51)
--- NOTE | 2022-02-03 13:21 | NURSING ---
pt states that her daughter and son in law are going to be staying with her and helping her at home. pt states she would like to have home health. Will inform SW
--- NOTE | 2022-02-03 13:32 | DCINST_ITS ---
Discharge Instructions Diet Discharge Diet: No restrictions Activity Discharge Activity: Return to Normal Activity Dressing / Incision Call your doctor if you observe: Fever of 101 or Higher, Shortness of breath, Dizziness, Fainting spells, Swelling in the ankles, Chest pain and Increased palpitations (irregular heartbeat) Follow Up Care Test Results: Test results from this visit will be discussed in further detail at your follow- up appointment, if applicable. Discharge Plan Admission Admit Date/Time: 02/03/22 00:00 Attending Provider: Erik Dobbins Primary Care Provider: Bryn Cardona Consulting Providers: Nehemiah Villanueva Discharge Orders/Prescriptions Prescriptions: Continued lisinopril 10 mg Tablet 40 mg PO DAILY hydrochlorothiazide 25 mg Tablet 25 mg PO DAILY meloxicam 15 mg tablet 15 mg PO DAILY hydrocodone-acetaminophen 5-325 mg tablet 1 tab PO Q6H PRN (Reason: pain) 3 Days Qty: 12 0RF Referrals / Follow Up: Bryn Cardona MD [Primary Care Provider] - Within 1 Week Disposition Disposition (needs filled in before D/C Order can be placed): Home Health Service
--- NOTE | 2022-02-03 14:13 | CASEMGMT ---
Addendum entered by Makenna Funk 02/03/22 15:05: Pt chose 1. [facility], 2. [facility] and 3. [facility]. Referral to be sentn to Jeff via [facility] at this time. Pt is aware this will likely not be set up until Saturday and she verbalizes understanding. Original Note: YAHIR MENDOZA in to pt room, pt to be dc'd today. pt states she lives in a single story home with no steps to enter. She states she lives in a senior complex. Pt reports she has a CM through her insurance named Melody. States they are working on getting an aide for her but there is not any staffing. Pt reports she fell taking a bath. She is agreeable to C therapy to see her. Patient was provided a list of HHC providers including quality and resource use data and consistent with the patient?s preferred geographic region, medical needs, and insurance network were provided from the [employer] Guide. Pt to review and YAHIR MENDOZA to check back.
--- NOTE | 2022-02-03 14:37 | DS.PCM_ITS ---
Providers Date of Admission: 02/03/22 Primary Care Physician: Dr. Bryn Cardona MD Reason For Visit: MULTIPLE FALLS Diagnosis Discharge Diagnosis (1) Multiple falls: Status: Acute Code(s): R29.6 - Repeated falls (2) Acute hip pain: Status: Acute Code(s): M25.559 - Pain in unspecified hip (3) Hypertension: Status: Chronic Code(s): I10 - Essential (primary) hypertension Medications at Discharge Home Medications hydrochlorothiazide 25 mg tablet 25 mg PO DAILY 07/08/20 lisinopril 10 mg tablet 40 mg PO DAILY 07/08/20 hydrocodone-acetaminophen 5-325mg 5mg-325mg 1 tab PO Q6H PRN pain 3 days #12 tabs 01/29/22 meloxicam 15 mg tablet 15 mg PO DAILY 01/29/22 Hospital Course Operations None Procedures None Summary of Care Provided Minutes Spent on Discharge: 38 Hospital Course: Per HPI: MANJIT ESTRELLA, is a 76 F with a significant history of chronic pain and hypertension who presents to the emergency department with multiple falls on the same day of presentation.? Patient fell 2 times on the same day of presentation.? The first fall was in the bathtub and the other fall was outside the bathtub.? She reports pain in her left knee; pain in her right armpit; and pain in her entire right lower extremities.? She attributes this pain to the f alls.? She has bruises from the falls. Because of pain associated with a fall she has difficulty getting up.? At baseline she uses a Rollator She had some [place] at home but that [place] did not give her any relief. Hospital Course: 1. Multiple falls and debility secondary to severe left hip arthritis? 76-year-old female slipped in her tub while trying to get in to take a shower and when she completed her shower she slipped on her way out on the rug that went out from under her feet. She has noted that she is able to ambulate just fine with a Rollator at home but that she has been having difficulty with her left hip giving out on occasion. She does have an appointment with orthopedic surgery on 02/09/2022. All imaging is negative for fracture, she does have some ecchymosis in her right knee as well as her left foot and inner right chest as she had fallen against the tub at 1 point. She was evaluated by PT/OT who felt that she would be safe to go home with home health and she does have a family member who can stay with her for the immediate future. I discussed with her the plan for discharge today she expressed understanding of the risk benefits going home and would like to go home today. 2. Hypertension currently past medical history as she is not chronically anemic and does not have any chronic kidney disease. All of her home blood pressure medications were continued on discharge. Physical Exam Narrative General: Alert, Oriented x3, Cooperative, No apparent distress HEENT: Atraumatic, PERRLA, EOMI, Normocephalic Oral: Moist Mucosa Neck: Supple, No JVD Lungs: Clear to auscultation, Normal air movement, No rhonchi, No wheeze, No rales Cardiovascular: Regular rate, Regular Rhythm, Normal S1, Normal S2, No murmurs Abdomen: Soft, Non Tender, Non-Distended, No Hepato-splenomegaly Extremities: No edema, Capillary Refill Less than 3 Seconds Skin: Ecchymosis in her right chest as well as her right knee and left foot Musculoskeletal: No Tenderness to Palpation of Joints or Extremities Neurological: Cranial nerves II-XII grossly intact, Motor Exam 5/5 strength throughout, Sensory exam intact to light touch and pain Psych/Mental Status: Normal Affect, Appropriate Weight / BMI Weight Weight: 138 lb 3.2 oz Body Mass Index (BMI) 25.2 ABG / Lab / Microbiology Data Result Diagrams: 02/03/22 03:13 02/03/22 03:13 Laboratory: Laboratory Results - last 24 hr 02/02/22 22:00: WBC 4.9, RBC 3.91 L, Hgb 11.8 L, Hct 36.3 L, MCV 92.8, MCH 30.2, MCHC 32.5, RDW Std Deviation 46.4 H, RDW Coeff of Kirt 13.5, Plt Count 220, MPV 9.9, Immature Gran % (Auto) 0.200, Neut % (Auto) 42.7 L, Lymph % (Auto) 40.9, [place] % (Auto) 12.7 H, Eos % (Auto) 2.5, Baso % (Auto) 1.0, Absolute Neuts (auto) 2.1, Absolute Lymphs (auto) 1.99, Nucleated RBC % 0 02/02/22 22:00: Sodium 138, Potassium 3.5, Chloride 107, Carbon Dioxide 28.0, Anion Gap 3 L, BUN 9, Creatinine 1.05 H, Estim Creat Clear Calc 34.92, Est GFR (MDRD) Af Amer 65, Est GFR (MDRD) Non-Af 54 L, BUN/Creatinine Ratio 8.6 L, Glucose 98, Calcium 8.6 02/03/22 03:13: Sodium 137, Potassium 3.5, Chloride 106, Carbon Dioxide 25.0, Anion Gap 6, BUN 7, Creatinine 0.96, Estim Creat Clear Calc 38.20, Est GFR (MDRD) Af Amer 72, Est GFR (MDRD) Non-Af 60, BUN/Creatinine Ratio 7.3 L, Glucose 99, Calcium 8.7 02/03/22 03:13: WBC 4.4, RBC 3.98 L, Hgb 12.0, Hct 37.1, MCV 93.2, MCH 30.2, MCHC 32.3, RDW Std Deviation 46.5 H, RDW Coeff of [place] 13.5, Plt Count 212, MPV 9.7, Immature Gran % (Auto) 0.200, Neut % (Auto) 49.2, Lymph % (Auto) 34.6, [place] % (Auto) 12.8 H, Eos % (Auto) 2.3, Baso % (Auto) 0.9, Absolute Neuts (auto) 2.2, Absolute Lymphs (auto) 1.52, Nucleated RBC % 0 Radiography Diagnostic Testing: Radiology Impression Femur X-Ray 02/02/22 22:25 IMPRESSION: Normal x-ray examination of the femur. Electronically Signed: Brendan Bullard MD at 22:56 EST Reading Location ID and State: [id number] / [employer] , Service support , Knee X-Ray 02/02/22 22:25 IMPRESSION: No acute fracture or dislocation. Electronically Signed: Brendan Bullard MD at 22:54 EST Reading Location ID and State: [id number] / [employer] , Service support , Pelvis X-Ray 02/02/22 22:25 IMPRESSION: 1. No acute fracture or dislocation. 2. Mild right hip arthrosis. 3. Severe left hip arthrosis. Electronically Signed: Brendan Bullard MD at 22:53 EST , Tibia/Fibula X-Ray 02/02/22 22:25 IMPRESSION: Normal x-ray examination of the tibia and fibula. Electronically Signed: Brendan Bullard MD at 22:55 EST , Pelvis CT 02/03/22 02:29 IMPRESSION: 1. No acute fracture or dislocation. If there is continued clinical concern for occult fracture consider further characterization with MRI of the hip. 2. Severe left and mild right hip osteoarthritic changes, similar compared to the prior. Electronically Signed: Luis A Ashley MD at 4:17 EST , D/C Instructions Discharge Diet: No restrictions Call your doctor if you observe: Fever of 101 or Higher, Shortness of breath, Dizziness, Fainting spells, Swelling in the ankles, Chest pain and Increased palpitations (irregular heartbeat) Meaningful Use Info Meaningful Use Diagnoses (Choose all that apply): None applicable Discharge Plan Admission Admit Date/Time: 02/03/22 00:00 Attending Provider: Erik Dobbins Primary Care Provider: Bryn Cardona Consulting Providers: Nehemiah Villanueva Discharge Orders/Prescriptions Prescriptions: Continued lisinopril 10 mg Tablet 40 mg PO DAILY hydrochlorothiazide 25 mg Tablet 25 mg PO DAILY meloxicam 15 mg tablet 15 mg PO DAILY hydrocodone-acetaminophen 5-325 mg tablet 1 tab PO Q6H PRN (Reason: pain) 3 Days Qty: 12 0RF Referrals / Follow Up: Bryn Cardona MD [Primary Care Provider] - Within 1 Week Disposition Disposition (needs filled in before D/C Order can be placed): Home Health [facility] Charges/Coding Visit Charges OBSV E&M: 62150 Observation care discharge
[2022-02-03 14:52] VITALS: BP 131/58; RESP 18; TEMP 37.2; O2SAT 97
[2022-02-05 11:55] LABS: Vitamin B12 571 pg/mL (211-911); Vitamin D,25 Hydroxy 15.2 ng/mL
== END 2022-02-03 16:36 | disposition home health service (06) ==
LOC: ED 23:15 → ICU 02-03 00:15 → MS3 02-03 09:05
PROVIDERS: Admitting Provider Hospitalist; Emergency Provider Emergency Medicine; PCP Family Medicine; Visit Provider Family Medicine
DX: S70.00XA Contusion of unspecified hip, initial encounter (principal); N18.32 Chronic kidney disease, stage 3b; W18.2XXA Fall in (into) shower or empty bathtub, initial encounter; I12.9 Hypertensive chronic kidney disease with stage 1 through stage 4 chronic kidney disease, or unspecified chronic kidney disease; G89.29 Other chronic pain; F17.200 Nicotine dependence, unspecified, uncomplicated; R53.81 Other malaise; Z79.899 Other long term (current) drug therapy; M79.604 Pain in right leg; M79.605 Pain in left leg; M13.852 Other specified arthritis, left hip; Y92.9 Unspecified place or not applicable; K21.9 Gastro-esophageal reflux disease without esophagitis; D64.9 Anemia, unspecified
CPT/HCPCS: 72170; 72192; 73552; 73564; 73590; 80048; 82306; 82607; 85025; 96372; 96374; 96375; 96376; 97162; 97165; 99218; 99285; A4216; G0378; J2405

== ENCOUNTER 2022-02-06 00:08 | Emergency (ER) | payer MEDICARE, MEDICAID, SELFPAY ==
[2022-02-06 00:09] VITALS: BP 161/92; PULSE 66; RESP 20; TEMP 35.8; O2SAT 96; BMI 25.9
--- NOTE | 2022-02-06 00:37 | ED.VIS.LOWEX ---
HPI History of Present Illness Chief Complaint: Lower Extremity Injury Informant: patient Narrative Narrative: Patient states she has had pain in her right lateral hip and groin for the past 2 weeks. She denies any injury. She states it started very suddenly, and has been severe ever since then she cannot take the pain anymore. She took an oxycodone prior to coming here but states it is not helping and she states she is miserable. She states the pain radiates down to her right ankle. She denies any bowel or bladder dysfunction. No pain in her back. She states no abdominal pain, nausea, vomiting, changes in bowel movements, or urination. She cannot find a comfortable position. She denies standing versus sitting making a big difference. She states weightbearing does not seem to make it worse, but admits that she is using a walker to get around since this started, whereas she had not been in the past. After thorough history and exam, the patient then states this is her fourth visit here for the same thing. PFSH PFSH Medical History Chronic pain GERD (gastroesophageal reflux disease) History of skin cancer Hypertension Migraines Smoker Home Medications hydrochlorothiazide 25 mg tablet 25 mg PO DAILY 07/08/20 [History Last Taken 02/02/22] lisinopril 10 mg tablet 40 mg PO DAILY 07/08/20 [History Last Taken 02/02/22] hydrocodone-acetaminophen 5-325mg 5mg-325mg 1 tab PO Q6H PRN pain 3 days #12 tabs 01/29/22 [Rx Last Taken 02/02/22] meloxicam 15 mg tablet 15 mg PO DAILY 01/29/22 [History Last Taken 02/02/22] oxycodone-acetaminophen 5 mg-325 mg tablet (Endocet) 1 tab PO Q8H PRN pain 3 days #10 tabs 02/03/22 [Rx Last Taken Unknown] prednisone 10 mg tablet 10 mg PO UD #30 tabs 02/06/22 [Rx Last Taken Unknown] Allergy/AdvReac Type Severity Reaction Status Date / Time codeine Allergy Upset Verified 02/06/22 00:12 Stomach Tetanus Vaccines and Toxoid Allergy NEEDS Verified 02/06/22 00:12 FOLLOW-UP Family History Other COPD (chronic obstructive pulmonary disease) Surgical History Hx of hysterectomy Social History Smoking Status: Heavy Smoker (>10/day) ROS ROS ED Constitutional Constitutional ED: Denies chills or fever(s) Eyes Eyes: Denies blurry vision or diplopia ENT ENT ED: Denies rhinorrhea or sore throat Cardiovascular Cardiovascular: Denies chest pain or palpitations Respiratory/Chest Respiratory/Chest: Denies cough or dyspnea Gastrointestinal Gastrointestinal: Denies abdominal pain, diarrhea, nausea or vomiting Genitourinary Genitourinary ED: Denies dysuria or hematuria Musculoskeletal Musculoskeletal: Reports extremity pain; Denies back pain or neck pain Integumentary Denies Abrasions, rash or wounds Neurologic Neurologic: Denies headache(s), paresthesias or weakness EXAM Physical Exam Const Vital Signs: 02/06/22 00:09 Temperature 96.4 F L Temperature Source Temporal Pulse Rate 66 Respiratory Rate 20 H Blood Pressure 161/92 H Blood Pressure Mean 115 Pulse Ox 96 Oxygen Delivery Method Room Air Positive well nourished and well developed Constitutional Narrative: Anxious and uncomfortable, fidgety General Appearance ED: well developed and NAD Neck full ROM and supple Chest Wall inspection of chest normal and palpation of chest normal Resp normal respiratory effort and no retractions Cardio regular rate and regular rhythm GI non-tender, non-distended and no masses Back/Spine no CVA tenderness, normal ROM and normal to inspection Extremity normal to inspection Extremity Narrative: No erythema lateral about the right hip, but tender to the right trochanter. Nontender at the ASIS and pelvic brim, but tender in the right groin. No palpable lymphadenopathy. Straight leg raises significantly increase her right lateral hip and groin pain, but do not reproduce any radicular symptoms to or below the knee. Negative cross straight leg raise. No deformities. Full range of motion of the hip with regards to external and internal rotation without recreating any discomfort. Neuro oriented x3, no focal motor deficits and no sensory deficits noted Sensorium / Orientation: alert Psych mental status grossly normal and thought process normal Mood & Affect: anxious Skin no wounds Skin Narrative: Normal appearance to affected area right lower extremity proximally Rashes: no rashes MDM MDM MDM Narrative Medical decision making narrative: It seems the patient had 2 days worth of labs that were unremarkable, the last of which was 3 days ago, she had x-rays that showed arthritis but way worse on the left hip than the right, and a CT of the pelvis that showed similar findings and nothing else acute. This clearly seems musculoskeletal since I can reproduce her symptoms with certain movements of the right lower extremity, and I do not think she needs to be evaluated for kidney stone or other intra-abdominal pathology. I think it would be reasonable to consider bursitis of the greater trochanter, iliopsoas, or other surrounding tendon pathology. However, the patient presents after midnight and I am relatively limited on diagnostics regarding these structures. After this, I reviewed documentation from other providers. It appears that several days ago the patient was admitted, she did not tell me this. She also did not tell me that she fell, I asked her if she had any injury and she said no but apparently she was admitted after multiple falls. I think at least she should be ruled out for an occult hip fracture, she did not have an MRI when she was here. She apparently has an orthopedic appointment in 3 days. Therefore and considering admission I performed labs, they are unremarkable except for hypokalemia which is probably due to anxiety/hyperventilation and a transient acute respiratory alkalosis, so does not need to be replaced/treated, and I also added ESR and CRP. Both returned normal, well within normal limits, arguing against acute joint pathology including occult fracture. Since she can bear weight on it without difficulty and has painless internal and external rotation on exam, this is consistent with the lack of a fracture. I treated her with morphine as I was performing this work-up including repeat x-rays, 3 views of the right hip show no acute pathology or fracture of mitral rotation as confirmed by radiology, much worse pathology in the left hip where she is asymptomatic, and on reevaluation she feels much better and is comfortable. I discussed offer for inpatient observation versus going home, she is comfortable going home she just wants to get to her orthopedic appointment in 2 or 3 days which I understand. I think it would be reasonable to treat her with steroids which she has not had yet. She has the analgesics at home. Started her on Solu-Medrol here with a prescription of prednisone and she will wait for her ride and be discharged she is comfortable with that overall plan. Lab Data Attestation: I reviewed the patient's lab results. Labs: Laboratory Results - last 24 hr 02/06/22 02/06/22 02/06/22 01:02 01:02 01:21 WBC 8.1 RBC 4.25 Hgb 12.8 Hct 39.1 MCV 92.0 MCH 30.1 MCHC 32.7 RDW Std Deviation 45.6 H RDW Coeff of Kirt 13.4 Plt Count 156 MPV 11.8 Immature Gran % (Auto) 0.200 Neut % (Auto) 60.9 Lymph % (Auto) 26.8 [place] % (Auto) 9.2 Eos % (Auto) 2.5 Baso % (Auto) 0.4 Absolute Neuts (auto) 4.9 Absolute Lymphs (auto) 2.16 Nucleated RBC % 0 ESR 2 Sodium Cancelled 138 Potassium Cancelled 3.1 L Chloride Cancelled 107 Carbon Dioxide Cancelled 26.0 Anion Gap Cancelled 5 BUN Cancelled 15 Creatinine Cancelled 1.24 H Estim Creat Clear Calc Cancelled 29.57 Est GFR (MDRD) Af Amer Cancelled 54 L Est GFR (MDRD) Non-Af Cancelled 44 L BUN/Creatinine Ratio Cancelled 12.1 Glucose Cancelled 120 H Calcium Cancelled 8.9 C-React Prot Ext Range Cancelled < 2.90 Radiography Diagnostic Testing: Clinical Impression(s) from Imaging Studies Hip/Pelvis X-Ray 02/06/22 00:45 IMPRESSION: No acute or healing fracture or malalignment. CT/MRI are more sensitive if still concerned. End-stage left hip osteoarthrosis. Electronically Signed: Boston Browning MD at 2:08 EST , Discharge Plan Triage Chief Complaint: Lower Extremity Injury ED Provider: Julio Enciso Dx/Rx/DC Orders Clinical Impression: Bursitis of hip, right Instructions: ED Bursitis Prescriptions: New prednisone 10 mg tablet 10 mg PO UD Qty: 30 0RF Rx Instructions: Take 4 tablets daily for 3 days, then 3 daily for 3 days, then 2 daily for 3 days, then 1 a day for 3 days No Action lisinopril 10 mg Tablet 40 mg PO DAILY hydrochlorothiazide 25 mg Tablet 25 mg PO DAILY meloxicam 15 mg tablet 15 mg PO DAILY hydrocodone-acetaminophen 5-325 mg tablet 1 tab PO Q6H PRN (Reason: pain) 3 Days Qty: 12 0RF oxycodone-acetaminophen [Endocet] 5-325 mg tablet 1 tab PO Q8H PRN (Reason: pain) 3 Days Qty: 10 0RF Primary Care Provider: Bryn Cardona Referrals: orthopaedic, your [Other] - Keep Oleg appointment Bryn Cardona MD [Primary Care Provider] - Disposition Disposition: Home, Self Care
--- NOTE | 2022-02-06 00:45 | RAD_ITS ---
EXAM: XR RIGHT HIP WITH PELVIS WHEN PERFORMED, 1 VIEW CLINICAL INDICATION: continued pain, subacute fall TECHNIQUE: Frontal view of the right hip with pelvis when performed. This report was created using [email or web address] report generation technology. COMPARISON: None. FINDINGS: BONES/JOINTS: Severe/end-stage osteoarthrosis of the left hip joint. No acute or healing fracture or malalignment. No new lytic or sclerotic lesion of bone. Sacroiliac joint is unremarkable. No widening of the pubic symphysis. SOFT TISSUES: Unremarkable. No soft tissue swelling or gas. VASCULATURE: Atherosclerotic calcifications of the iliac arteries. Phleboliths in the pelvis. RAD/HIP, UNI W/ Pelvis 2-3 Views IMPRESSION: No acute or healing fracture or malalignment. CT/MRI are more sensitive if still concerned. End-stage left hip osteoarthrosis. Electronically Signed: Boston Browning MD at 2:08 EST ,
[2022-02-06] MEDS: Morphine 4 MG/ML Syringe IV (01:05)
[2022-02-06] MEDS: Ondansetron 4 MG/2 ML Vial IV (01:05)
[2022-02-06 01:10] LABS: Erythrocyte Sedimentation Rate 2 mm/hr (0-30)
[2022-02-06 01:12] LABS: Absolute Lymphocyte Count 2.16 X10^3/uL (0.83-4.51); Absolute Neutrophil Count 4.9 X10^3/uL (2.0-7.7); Basophil# 0.03 X10^3/uL; Basophil% 0.4 % (0-1); Eosinophils% 2.5 % (0-5); Hematocrit 39.1 % (37-47); Hemoglobin 12.8 g/dL (12.0-15.0); Lymphocyte # 2.16 X10^3/ul (0.83-4.51); Lymphocyte % 26.8 % (19-41); Mean Corp Hgb Conc 32.7 g/dL (32-36); Mean Corpuscular Hgb 30.1 pg (27.0-32.0); Mean Platelet Vol. 11.8 fl (6.2-12.0); Monocyte# 0.74 X10^3/uL; Monocyte% 9.2 % (0-10); NRBC Flagged by Analyzer 0 % (0-5); Neutrophil # 4.92 X10^3/uL (2.7-7.7); Neutrophil % 60.9 % (47-70); Platelet Count 156 K/mm3 (150-450); RBC Distribution Width CV 13.4 % (11.6-14.6); RBC Distribution Width SD 45.6 fl (35.1-43.9); Red Blood Count 4.25 M/mm3 (4.2-5.4); White Blood Count 8.1 K/mm3 (4.4-11.0)
[2022-02-06 01:40] LABS: Anion Gap 5 (5-15); BUN 15 mg/dL (7-18); BUN/Creat Ratio 12.1 RATIO (10-20); CRP < 2.90 mg/L (0.0-3.0); Calcium,Total 8.9 mg/dL (8.5-10.1); Chloride 107 mmol/L (98-107); Creatinine, Serum 1.24 mg/dL (0.55-1.02); EST Glomerular Filtration Rate 44 mL/min (>60); Est Glom Filt Rate - Afr Amer 54 mL/min (>60); Estimated Creatinine Clearance 29.57 ml/min; Glucose 120 mg/dL (74-106); Potassium 3.1 mmol/L (3.5-5.1); Sodium Level 138 mmol/L (136-145)
[2022-02-06] MEDS: MethylPREDNISolone 125 MG/2 ML Vial IV (02:44)
[2022-02-06] MEDS: Morphine 2 MG/ML Syringe IV (06:15)
[2022-02-06 06:25] VITALS: BP 147/70; PULSE 72; RESP 14; O2SAT 95
== END 2022-02-06 06:47 | disposition home or self-care (01) ==
PROVIDERS: Emergency Provider Emergency Medicine; PCP Family Medicine; Visit Provider Emergency Medicine
DX: M70.71 Other bursitis of hip, right hip (principal); M16.0 Bilateral primary osteoarthritis of hip; F17.200 Nicotine dependence, unspecified, uncomplicated; I10 Essential (primary) hypertension; Z79.52 Long term (current) use of systemic steroids
CPT/HCPCS: 73502; 80048; 85025; 85652; 86140; 96374; 96375; 96376; 99285; A4216; J2405

== ENCOUNTER 2022-02-10 20:44 | Emergency (ER) | payer MEDICARE, MEDICAID, SELFPAY ==
[2022-02-10 20:46] VITALS: BP 159/94; PULSE 91; RESP 18; TEMP 36.7; O2SAT 96; BMI 24.8
[2022-02-10 20:52] VITALS: BP 159/94; PULSE 91; RESP 18; TEMP 36.7; O2SAT 96
[2022-02-10 21:46] VITALS: BP 160/75; PULSE 82; RESP 18; O2SAT 96
--- NOTE | 2022-02-10 22:53 | RAD_ITS ---
INDICATION: Right hip pain for one month EXAMINATION/TECHNIQUE: X-RAY - RIGHT XR Hip Unilateral with Pelvis when performed; 2-3 Views 3 VIEWS COMPARISON: 01/11/2022, 02/06/2022 FINDINGS: SOFT TISSUES: No soft tissue swelling or gas. No radiopaque foreign body. BONES/JOINTS: No acute fracture. Stable severe degenerative changes of the left hip. Right hip joint space well maintained. RAD/HIP, UNI W/ Pelvis 2-3 Views IMPRESSION: No acute bony abnormality. Electronically Signed: Diego Doherty MD at 0:05 EST ,
[2022-02-10] MEDS: fentaNYL 100 MCG/2 ML Ampul 25 MCG IV (23:31)
[2022-02-10 23:43] LABS: Absolute Lymphocyte Count 1.76 X10^3/uL (0.83-4.51); Absolute Neutrophil Count 7.7 X10^3/uL (2.0-7.7); Basophil# 0.01 X10^3/uL; Basophil% 0.1 % (0-1); Eosinophil# 0.01 X10^3/uL; Eosinophils% 0.1 % (0-5); Hematocrit 41.1 % (37-47); Hemoglobin 13.6 g/dL (12.0-15.0); Lymphocyte # 1.76 X10^3/ul (0.83-4.51); Lymphocyte % 16.5 % (19-41); Mean Corp Hgb Conc 33.1 g/dL (32-36); Mean Corpuscular Volume 90.5 fL (81-99); Mean Platelet Vol. 9.8 fl (6.2-12.0); Monocyte# 1.12 X10^3/uL; Monocyte% 10.5 % (0-10); NRBC Flagged by Analyzer 0 % (0-5); Neutrophil # 7.67 X10^3/uL (2.7-7.7); Platelet Count 449 K/mm3 (150-450); RBC Distribution Width CV 13.4 % (11.6-14.6); RBC Distribution Width SD 44.2 fl (35.1-43.9); Red Blood Count 4.54 M/mm3 (4.2-5.4); White Blood Count 10.7 K/mm3 (4.4-11.0)
[2022-02-10 23:51] LABS: Erythrocyte Sedimentation Rate 6 mm/hr (0-30)
[2022-02-11 00:12] LABS: Anion Gap 4 (5-15); BUN 26 mg/dL (7-18); BUN/Creat Ratio 20.2 RATIO (10-20); CRP < 2.90 mg/L (0.0-3.0); Chloride 105 mmol/L (98-107); Creatinine, Serum 1.29 mg/dL (0.55-1.02); EST Glomerular Filtration Rate 42 mL/min (>60); Est Glom Filt Rate - Afr Amer 51 mL/min (>60); Estimated Creatinine Clearance 28.43 ml/min; Glucose 98 mg/dL (74-106); Potassium 3.7 mmol/L (3.5-5.1); Sodium Level 137 mmol/L (136-145)
[2022-02-11] MEDS: oxyCODONE 5 MG Tablet 10 MG PO (01:42)
--- NOTE | 2022-02-11 01:47 | ED.VIS.LOWEX ---
HPI History of Present Illness Chief Complaint: Lower Extremity Injury Detail of Chief Complaint: Right hip pain Informant: patient Onset/Context/Timing Onset: Weeks (3-week) Context: Gradual Onset Current Severity: Moderate Maximum Severity: Severe Narrative Narrative: Patient presents secondary to increased right hip pain for the last 3 weeks. She been having right hip pain and then suffered 2 falls. She is been seen in the ER multiple times and admitted on [address] Buchanan on Saturday. He is ordering an MRI although CT scans have been negative. Patient has prednisone and meloxicam at home. She is out of the [place] and Percocet that had been previously written for her. Dr. Buchanan had asked her to get her pain medication from her primary care physician. She states she called them but did not receive a return call back. She called EMS tonight for transport due to her degree of pain. There have been no new falls or injuries. No fever or chills. PFSH PFSH Medical History Chronic pain GERD (gastroesophageal reflux disease) History of skin cancer Hypertension Migraines Smoker Home Medications hydrochlorothiazide 25 mg tablet 25 mg PO DAILY 07/08/20 [History Last Taken 02/02/22] lisinopril 10 mg tablet 40 mg PO DAILY 07/08/20 [History Last Taken 02/02/22] meloxicam 15 mg tablet 15 mg PO DAILY 01/29/22 [History Last Taken 02/02/22] oxycodone-acetaminophen 5 mg-325 mg tablet (Endocet) 1 tab PO Q8H PRN pain 3 days #10 tabs 02/03/22 [Rx Last Taken Unknown] prednisone 10 mg tablet 10 mg PO UD #30 tabs 02/06/22 [Rx Last Taken Unknown] oxycodone-acetaminophen 5 mg-325 mg tablet (Percocet) 1 tab PO Q6H PRN pain 3 days #14 tabs 02/11/22 [Rx Last Taken Unknown] Allergy/AdvReac Type Severity Reaction Status Date / Time codeine Allergy Upset Verified 02/09/22 09:34 Stomach Tetanus Vaccines and Toxoid Allergy NEEDS Verified 02/09/22 09:34 FOLLOW-UP Family History Other COPD (chronic obstructive pulmonary disease) Surgical History Hx of hysterectomy Social History Smoking Status: Heavy Smoker (>10/day) ROS ROS ED Constitutional Constitutional ED: Denies chills or fever(s) Eyes Eyes: Denies change in vision or discharge from eye(s) ENT ENT ED: Denies discharge from eye(s), rhinorrhea or sore throat Cardiovascular Cardiovascular: Denies chest pain or palpitations Respiratory/Chest Respiratory/Chest: Denies cough or dyspnea Gastrointestinal Gastrointestinal: Denies abdominal pain, nausea or vomiting Genitourinary Genitourinary ED: Denies dysuria Musculoskeletal Musculoskeletal: Reports extremity pain Integumentary Denies Abrasions or rash Neurologic Neurologic: Reports weakness; Denies headache(s) Psychiatric Psychiatric: Reports anxiety; Denies depression Allergic/Immunologic Allergic/Immunologic ED: Denies lip swelling or urticaria EXAM Physical Exam Const Vital Signs: 02/10/22 20:46 02/10/22 20:52 02/10/22 21:46 Temperature 98.1 F 98.1 F Temperature Source Temporal Temporal Pulse Rate 91 91 82 Respiratory Rate 18 18 18 Blood Pressure 159/94 H 159/94 H 160/75 H Blood Pressure Mean 115 115 103 Pulse Ox 96 96 96 Oxygen Delivery Method Room Air Room Air Room Air Positive well nourished and well developed General Appearance ED: well developed HEENT Reports normocephalic and head/scalp atraumatic Eyes PERRL and EOMs intact bilaterally Neck supple Chest Wall inspection of chest normal and palpation of chest normal Resp normal respiratory effort and clear to auscultation bilaterally Cardio regular rate and regular rhythm GI normal to inspection, nondistended, normoactive bowel sounds Palpation: soft Extremity Extremity Narrative: Tenderness palpation over the lateral right hip at the greater trochanter. No overlying skin changes. Mild pain with logroll. Good distal pulses. Neuro oriented x3 and no sensory deficits noted Neuro Narrative: Decreased strength right lower extremity secondary to pain. Sensorium / Orientation: alert Psych Mood & Affect: anxious Skin no rashes or lesions noted MDM MDM MDM Narrative Medical decision making narrative: Patient's previous work-ups reviewed. I reviewed the orthopedic visit from the day prior. Patient given fentanyl here for pain. Lab work obtained along with inflammatory markers. Pelvis right hip x-ray obtained. Lab Data Attestation: I reviewed the patient's lab results. Labs: Laboratory Results - last 24 hr 02/10/22 02/10/22 23:35 23:35 WBC 10.7 RBC 4.54 Hgb 13.6 Hct 41.1 MCV 90.5 MCH 30.0 MCHC 33.1 RDW Std Deviation 44.2 H RDW Coeff of Kirt 13.4 Plt Count 449 MPV 9.8 Immature Gran % (Auto) 0.800 Neut % (Auto) 72.0 H Lymph % (Auto) 16.5 L [place] % (Auto) 10.5 H Eos % (Auto) 0.1 Baso % (Auto) 0.1 Absolute Neuts (auto) 7.7 Absolute Lymphs (auto) 1.76 Nucleated RBC % 0 ESR 6 Sodium 137 Potassium 3.7 Chloride 105 Carbon Dioxide 28.0 Anion Gap 4 L BUN 26 H Creatinine 1.29 H Estim Creat Clear Calc 28.43 Est GFR (MDRD) Af Amer 51 L Est GFR (MDRD) Non-Af 42 L BUN/Creatinine Ratio 20.2 H Glucose 98 Calcium 9.0 C-React Prot Ext Range < 2.90 Radiography Diagnostic Testing: Clinical Impression(s) from Imaging Studies Hip/Pelvis X-Ray 02/10/22 22:53 IMPRESSION: No acute bony abnormality. Electronically Signed: Diego Doherty MD at 0:05 EST Reading Location ID and State: [address] [place] [address] Tel , Service support , Treatment and Re-Evaluation Narrative: White count is normal as are sed rate and CRP. Right hip x-rays per my interpretation reveal no obvious acute abnormalities. Radiology interpretation is reviewed and agrees. Patient was given p.o. oxycodone. She was then walked with a walker and able to ambulate fairly well. I will write her a new prescription for Percocet as per her prior prescriptions as written she should be out of medication. She should be able to schedule her MRI soon as she just saw orthopedics on Saturday. Discharge Plan Triage Chief Complaint: Lower Extremity Injury ED Provider: Mariluz Jimenez Dx/Rx/DC Orders Clinical Impression: Strain of right hip Instructions: ED Hip Strain Prescriptions: New oxycodone-acetaminophen [Percocet] 5-325 mg tablet 1 tab PO Q6H PRN (Reason: pain) 3 Days Qty: 14 0RF No Action lisinopril 10 mg Tablet 40 mg PO DAILY hydrochlorothiazide 25 mg Tablet 25 mg PO DAILY meloxicam 15 mg tablet 15 mg PO DAILY oxycodone-acetaminophen [Endocet] 5-325 mg tablet 1 tab PO Q8H PRN (Reason: pain) 3 Days Qty: 10 0RF prednisone 10 mg tablet 10 mg PO UD Qty: 30 0RF Rx Instructions: Take 4 tablets daily for 3 days, then 3 daily for 3 days, then 2 daily for 3 days, then 1 a day for 3 days Primary Care Provider: Bryn Cardona Referrals: Bryn Cardona MD [Primary Care Provider] - 5-7 Days Nehemiah Buchanan DO [Med Staff - Active Staff] - 1-2 Weeks Disposition Disposition: Home, Self Care
[2022-02-11 03:14] VITALS: BP 149/70
[2022-02-11] MEDS: Ketorolac 30 MG/ML Syringe IM (06:38)
== END 2022-02-11 06:58 | disposition home or self-care (01) ==
PROVIDERS: Emergency Provider Emergency Medicine; PCP Family Medicine; Visit Provider Emergency Medicine
DX: S76.011A Strain of muscle, fascia and tendon of right hip, initial encounter (principal); W19.XXXA Unspecified fall, initial encounter; I10 Essential (primary) hypertension; G89.29 Other chronic pain; R29.6 Repeated falls; K21.9 Gastro-esophageal reflux disease without esophagitis; F17.200 Nicotine dependence, unspecified, uncomplicated; Z79.1 Long term (current) use of non-steroidal anti-inflammatories (NSAID); Z79.52 Long term (current) use of systemic steroids; Z79.899 Other long term (current) drug therapy
CPT/HCPCS: 73502; 80048; 85025; 85652; 86140; 96372; 96374; 99284; A4216

== ENCOUNTER → 2022-03-04 | Outpatient (CLI) | payer MEDICARE, MEDICAID, SELFPAY ==
--- NOTE | 2022-03-04 07:32 | MRI_ITS ---
STUDY: MRI RIGHT HIP REASON FOR EXAM: Female, 76 years old. pain, HARDLY ABLE TO BEAR WEIGHT TECHNIQUE: Standardized fat and water weighted pulse sequences were obtained in all 3 orthogonal planes. COMPARISON: Right hip/pelvic x-ray dated February 10, 2022 FINDINGS: Redemonstration of severe narrowing and degenerative changes of the left hip joint including significant subchondral cystic changes and cortical osteophyte formation. The proximal aspect of the left femoral head is flattened and diffusely irregular. Several loose bodies are also present in the left hip joint. The left acetabular labrum is diffusely torn and degenerated. A small to moderate size left hip joint effusion is present. A small to moderate-sized subchondral cyst is present in the right acetabular roof. No marrow edema or occult fractures are present. There is no evidence of avascular necrosis. The right hip joint space is mildly narrowed. The right acetabular labrum is blunted but not torn and detached. Normal femoral head. Normal femoral neck and intratrochanteric region. Normal gluteus minimus, medius and iliopsoas tendons and distal insertions. There is no trochanteric, iliopsoas or iliopectineal bursitis. Normal superior and inferior pubic rami. Normal pubic symphysis. Normal ischial tuberosity. Normal origin of the hamstring tendons. Normal visualized iliac wing, sacroiliac joint, and sacral ala. Normal visualized soft tissue structures of the pelvis. MRI/Lower Ext Joint Only (Routine) IMPRESSION: 1. Mild right hip joint space narrowing and subchondral cyst of the acetabular roof. 2. 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 Small to moderate size left hip joint effusion. Electronically Signed: Benigno Smith MD at 12:35 EST ,
== END | disposition home or self-care (01) ==
LOC: MRI 07:32
PROVIDERS: PCP Family Medicine; Referring Provider Orthopaedic Surgery; Visit Provider Orthopaedic Surgery
DX: M16.12 Unilateral primary osteoarthritis, left hip (principal); S73.192A Other sprain of left hip, initial encounter; M84.359A Stress fracture, hip, unspecified, initial encounter for fracture
CPT/HCPCS: 73721

== ENCOUNTER 2022-03-17 02:35 | Emergency (ER) | payer MEDICARE, MEDICAID, SELFPAY ==
[2022-03-17 02:39] VITALS: BP 144/57; PULSE 91; RESP 18; TEMP 36.6; O2SAT 99; BMI 26.4
--- NOTE | 2022-03-17 02:59 | EKG12_ITS ---
Test Reason : CHEST PAIN Blood Pressure : / mmHG Vent. Rate : 087 BPM Atrial Rate : 087 BPM P-R Int : 174 ms QRS Dur : 108 ms QT Int : 378 ms P-R-T Axes : 084 -14 090 degrees QTc Int : 454 ms Sinus rhythm with Premature atrial complexes and Premature ventricular complexes or Fusion complexes Anteroseptal infarct , age undetermined Abnormal ECG Confirmed by VERONICA ROSSI MD ([id number]), editor in chief LEMUEL CURTIS ([id number]) on 03/19/2022 10:28:36 AM Referred By: MOODY Confirmed By:VERONICA ROSSI MD
--- NOTE | 2022-03-17 02:59 | CT_ITS ---
STUDY: CT CHEST, ABDOMEN T PELVIS WITH CONTRAST REASON FOR EXAM: Female, 77 years old. pain with breathing RADIATION DOSAGE (If Supplied By Facility): CTDIvol = ( 12.33 ) mGy, DLP = ( 934.90 ) mGycm TECHNIQUE: Transaxial imaging was performed following intravenous administration of IV 100mL Isovue-370. Individualized dose optimization techniques were used for this CT. COMPARISON: No relevant priors. FINDINGS: CHEST The lungs are normal. There is no demonstrated pleural abnormality. Normal heart and pericardium. Normal mediastinum. Normal hilar regions. Normal unenhanced pulmonary arteries. Normal aorta arch and descending thoracic aorta. Normal osseous structures. There is no demonstrated abnormality of the visualized upper abdomen. ABDOMEN The visualized lung bases are unremarkable. The visualized portions of the heart are within normal limits. Normal liver. Normal gallbladder and extrahepatic biliary system. Normal spleen. Normal pancreas. Normal bilateral adrenal glands. Bilateral renal cysts, the largest measures 2.5 cm. Normal visualized stomach. Normal small intestine. Normal colon. The appendix is visualized and appears normal. Normal abdominal aorta. Normal inferior vena cava. Normal retroperitoneum. Normal abdominal wall. Normal osseous structures. PELVIS Normal urinary bladder. Normal visualized small intestine. There are multiple colonic diverticula of the descending colon and sigmoid colon consistent with chronic diverticulosis. There is no pelvic fluid. There is no pelvic lymphadenopathy or mass lesion. There is diffuse atherosclerotic calcification of the pelvic arteries. Normal abdominal wall. Normal osseous structures. CT/CT Chest, Abd, Pel w/Contrast IMPRESSION: Bilateral renal cysts, the largest measures 2.5 cm. Diverticulosis of the descending colon and sigmoid colon. Electronically Signed: Taina Cortez MD at 5:03 EST ,
[2022-03-17] MEDS: Ketorolac 15 MG/ML Vial IV (03:07)
[2022-03-17] MEDS: Orphenadrine 60 MG/2 ML Ampul IV (03:08)
[2022-03-17 03:10] LABS: Absolute Lymphocyte Count 2.13 X10^3/uL (0.83-4.51); Basophil# 0.09 X10^3/uL; Basophil% 0.9 % (0-1); Eosinophil# 0.14 X10^3/uL; Eosinophils% 1.3 % (0-5); Hematocrit 37.7 % (37-47); Hemoglobin 12.5 g/dL (12.0-15.0); Lymphocyte # 2.13 X10^3/ul (0.83-4.51); Lymphocyte % 20.3 % (19-41); Mean Corp Hgb Conc 33.2 g/dL (32-36); Mean Corpuscular Hgb 30.5 pg (27.0-32.0); Monocyte# 1.11 X10^3/uL; Monocyte% 10.6 % (0-10); NRBC Flagged by Analyzer 0 % (0-5); Neutrophil # 6.98 X10^3/uL (2.7-7.7); Neutrophil % 66.6 % (47-70); Platelet Count 487 K/mm3 (150-450); RBC Distribution Width CV 13.9 % (11.6-14.6); RBC Distribution Width SD 46.9 fl (35.1-43.9); White Blood Count 10.5 K/mm3 (4.4-11.0)
--- NOTE | 2022-03-17 03:48 | EX.ED.DYSGE1 ---
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 She states she has difficulty sleeping and last night was trying to sleep on the couch. She states that she change positions in order to get comfortable and when she did this she felt a sharp pain upper back. She states that that lasted for about 30 minutes and therefore he called EMS. She states that pain seems to be improving now but now she feels pain wrapping around the right and left abdomen slightly greater on the right and also feels some back pain with inspiration. She denies any loss of bowel or bladder control or IV drug use. She denies any nausea vomiting dysuria or diarrhea. She states that as the pain was not improving with [id number] medications she was unsure what to do and therefore contacted EMS to bring her in for evaluation [facility] Medical History Chronic pain GERD (gastroesophageal reflux disease) History of skin cancer Hypertension Migraines Smoker Home Medications hydrochlorothiazide 25 mg tablet 25 mg PO DAILY 07/08/20 [History Last Taken 02/02/22] lisinopril 10 mg tablet 40 mg PO DAILY 07/08/20 [History Last Taken 02/02/22] meloxicam 15 mg tablet 15 mg PO DAILY 01/29/22 [History Last Taken 02/02/22] lidocaine 4 % topical patch (Lidocaine Pain Relief) 1 patch topical BID PRN pain #30 ea 03/17/22 [Rx Last Taken Unknown] methocarbamol 500 mg tablet 500 mg PO 4X/DAY PRN PRN Muscle pain/spasm #40 tabs 03/17/22 [Rx Last Taken Unknown] Allergy/AdvReac Type Severity Reaction Status Date / Time codeine Allergy Upset Verified 03/17/22 02:43 Stomach Tetanus Vaccines and Toxoid Allergy NEEDS Verified 03/17/22 02:43 FOLLOW-UP Family History Other COPD (chronic obstructive pulmonary disease) Surgical History Hx of hysterectomy Social History Smoking Status: Heavy Smoker (>10/day) ROS ROS ED Constitutional Constitutional ED: Denies chills or fever(s) Eyes Eyes: Denies change in vision ENT ENT ED: Denies sore throat Cardiovascular Cardiovascular: Denies chest pain Respiratory/Chest Respiratory/Chest: Denies cough or dyspnea Gastrointestinal Gastrointestinal: Reports abdominal pain; Denies diarrhea, nausea or vomiting Genitourinary Genitourinary ED: Denies dysuria or hematuria Musculoskeletal Musculoskeletal: Reports back pain and other Details: Positive chronic bilateral hip pain Integumentary Denies rash Neurologic Neurologic: Denies headache(s) Hematologic/Lymphatic Hematologic/Lymphatic: Denies easy bleeding or easy bruising EXAM Physical Exam Const Vital Signs: 03/17/22 02:39 03/17/22 02:44 03/17/22 04:36 Temperature 97.9 F Temperature Source Temporal Pulse Rate 91 76 Respiratory Rate 18 15 Respiratory Effort Normal Respiratory Pattern Normal Blood Pressure 144/57 H 138/73 H Blood Pressure Mean 86 94 Pulse Ox 99 94 Oxygen Delivery Method Room Air Room Air Positive well nourished and well developed General Appearance ED: well developed HEENT Reports moist mucous membranes Eyes PERRL and EOMs intact bilaterally General Eye ED: Negative for scleral icterus Neck supple Chest Wall palpation of chest normal Chest Narrative: No bony deformity or crepitance of the chest wall palpated Resp normal respiratory effort and clear to auscultation bilaterally Cardio regular rate and regular rhythm Rate: other Other Details: Patient has a regular rate and rhythm with frequent ectopic beats noted Radial pulses are plus 2 out of 4 bilaterally are equal and symmetric Carotid pulses equal and symmetric as well GI non-distended GI Narrative: Abdomen is soft and nondistended with normoactive bowel sounds. There is pain on palpation in the right upper quadrant without voluntary guarding or rigidity. No pulsatile mass or fluid wave. Negative Acosta sign. Auscultation: normoactive bowel sounds Palpation: soft Back/Spine Back/Spine Narrative: No bony deformity or step-off of the thoracic or lumbar spine no midline pain on palpation. No saddle anesthesia. Negative straight leg. No clonus or Babinski. Patellar reflexes are plus 2 out of 4 bilaterally are equal and symmetric Extremity normal to inspection Extremity Narrative: No asymmetric edema no pitting edema negative Homans' sign bilaterally Neuro oriented x3 and CN's II-XII intact bilaterally Sensorium / Orientation: alert Psych mental status grossly normal Skin no rashes or lesions noted General Skin Exam: Negative for jaundice MDM MDM MDM Narrative Medical decision making narrative: Patient presented to the ER slightly hypertensive but does have a history of this and has pain so this is not to be unexpected. She reported a sharp pain starting in the low back radiating up towards the upper mid back after motion and with her history of recurrent hip pain from a stress fracture it was felt this is most likely musculoskeletal. However she states that that pain is since improved but now she feels pain sort of radiating towards the chest and abdomen. She is only slightly hypertensive and pulses are equal which goes against a dissection but with concern for that as a cause of her pain a CT of the chest abdomen pelvis will be obtained. On the potline monitor patient is throwing frequent PACs and PVCs which she states she is not have a history of and also now there is concern for possible PE as a cause based on the frequent ectopy. Blood work was obtained which revealed no clinically significant finding and CT scan showed no acute internal. After patient was given morphine her pain resolved and she was able to ambulate with a walker which she uses at home. Therefore at this time as labs do not indicate any type of acute kidney injury or severe electrolyte derangement and imaging rules out PE or dissection or pneumonia or intestinal pathology and she had improvement with pain medication I feel that her symptoms are most likely musculoskeletal in nature. Also by physical exam she does not have signs of neuro claudication and there is no need for emergent orthopedic consultation. Patient be given muscle relaxers and topical lidocaine patches to help with her chronic pain but as work-up is overall negative and she remains hemodynamically stable she is safe for discharge Lab Data Attestation: I reviewed the patient's lab results. Labs: Laboratory Results - last 24 hr 03/17/22 03/17/22 02:45 02:45 WBC 10.5 RBC 4.10 L Hgb 12.5 Hct 37.7 MCV 92.0 MCH 30.5 MCHC 33.2 RDW Std Deviation 46.9 H RDW Coeff of Kirt 13.9 Plt Count 487 H MPV 9.0 Immature Gran % (Auto) 0.300 Neut % (Auto) 66.6 Lymph % (Auto) 20.3 [place] % (Auto) 10.6 H Eos % (Auto) 1.3 Baso % (Auto) 0.9 Absolute Neuts (auto) 7.0 Absolute Lymphs (auto) 2.13 Nucleated RBC % 0 Sodium 136 Potassium 3.8 Chloride 103 Carbon Dioxide 25.0 Anion Gap 8 BUN 21 H Creatinine 0.91 Estim Creat Clear Calc 39.65 Est GFR (MDRD) Af Amer 76 Est GFR (MDRD) Non-Af 63 BUN/Creatinine Ratio 23.0 H Glucose 108 H Calcium 9.0 Magnesium 2.1 Total Bilirubin 0.30 Direct Bilirubin 0.13 AST 13 L ALT 22 Alkaline Phosphatase 100 Troponin I High Sens 10 Total Protein 6.6 Albumin 2.8 L Globulin 3.8 Lipase 232 TSH 2.68 Radiography Diagnostic Testing: Clinical Impression(s) from Imaging Studies Chest/Abdomen/Pelvis CT 03/17/22 02:59 IMPRESSION: Bilateral renal cysts, the largest measures 2.5 cm. Diverticulosis of the descending colon and sigmoid colon. Electronically Signed: Taina Cortez MD at 5:03 EST Reading Location ID and State: [facility] / [place] Tel , Service support , Discharge Plan Triage Chief Complaint: Chest Pain ED Provider: [place] Stack Dx/Rx/DC Orders Clinical Impression: Back pain with radiation, APC (atrial premature contractions), Premature ventricular contractions (PVCs) (VPCs), Hypertension, Stress fracture of right hip Instructions: PVCs, ED Back Pain (Acute or Chronic) Prescriptions: New methocarbamol 500 mg tablet 500 mg PO 4X/DAY PRN PRN (Reason: Muscle pain/spasm) Qty: 40 1RF lidocaine [Lidocaine Pain Relief] 4 % adhesive patch,medicated 1 patch topical BID PRN (Reason: pain) Qty: 30 1RF No Action lisinopril 10 mg Tablet 40 mg PO DAILY hydrochlorothiazide 25 mg Tablet 25 mg PO DAILY meloxicam 15 mg tablet 15 mg PO DAILY Primary Care Provider: Bryn Cardona Referrals: Bryn Cardona MD [Primary Care Provider] - Disposition Disposition: Home, Self Care
[2022-03-17] MEDS: Ondansetron 4 MG/2 ML Vial IV (03:57)
[2022-03-17] MEDS: Morphine 2 MG/ML Syringe IV ×2 (03:57→04:42)
[2022-03-17 04:01] LABS: AST(SGOT) 13 U/L (15-37); Alanine Aminotransfer ALT/SGPT 22 U/L (13-56); Albumin, Serum 2.8 g/dL (3.2-5.0); Alkaline Phosphatase 100 U/L (45-117); Anion Gap 8 (5-15); BUN 21 mg/dL (7-18); Bilirubin, Direct 0.13 mg/dL (0.00-0.30); Chloride 103 mmol/L (98-107); Creatinine, Serum 0.91 mg/dL (0.55-1.02); EST Glomerular Filtration Rate 63 mL/min (>60); Est Glom Filt Rate - Afr Amer 76 mL/min (>60); Estimated Creatinine Clearance 39.65 ml/min; Globulin 3.8 g/dL (2.2-4.2); Glucose 108 mg/dL (74-106); Lipase 232 U/L (73-393); Magnesium 2.1 mg/dL (1.6-2.6); Potassium 3.8 mmol/L (3.5-5.1); Protein, Total 6.6 g/dL (6.4-8.2); Sodium Level 136 mmol/L (136-145); Thyroid Stim Hormone (TSH) 2.68 uIU/mL (0.358-3.74); Troponin-I HS 10 pg/mL (3.0-54.0)
[2022-03-17 04:36] VITALS: BP 138/73; PULSE 76; RESP 15; O2SAT 94
[2022-03-17 05:35] VITALS: BP 138/73; PULSE 74; RESP 18; O2SAT 96
== END 2022-03-17 06:29 | disposition home or self-care (01) ==
PROVIDERS: Emergency Provider Emergency Medicine; PCP Family Medicine; Visit Provider Emergency Medicine
DX: M54.9 Dorsalgia, unspecified (principal); I26.99 Other pulmonary embolism without acute cor pulmonale; I49.3 Ventricular premature depolarization; F17.200 Nicotine dependence, unspecified, uncomplicated; I10 Essential (primary) hypertension; G89.29 Other chronic pain; M84.359A Stress fracture, hip, unspecified, initial encounter for fracture; Z82.5 Family history of asthma and other chronic lower respiratory diseases; I49.1 Atrial premature depolarization; K21.9 Gastro-esophageal reflux disease without esophagitis; Z79.01 Long term (current) use of anticoagulants; Z79.899 Other long term (current) drug therapy
CPT/HCPCS: 71260; 74177; 80048; 80076; 83690; 83735; 84443; 84484; 85025; 93005; 96374; 96375; 96376; 99283; 99285; J7030; Q9967; A4216; J2405

== ENCOUNTER 2022-03-17 21:15 | Emergency (ER) | payer MEDICARE, MEDICAID, SELFPAY ==
[2022-03-17 21:16] VITALS: BP 124/58; PULSE 88; RESP 16; TEMP 36.6; O2SAT 100; BMI 24.1
[2022-03-17 21:23] VITALS: BP 150/65; PULSE 87; RESP 18; O2SAT 98
--- NOTE | 2022-03-17 21:46 | ED.VIS.DYS ---
HPI History of Present Illness Chief Complaint: Shortness of Breath Informant: patient Narrative Narrative: Patient was called back in because a reread/overread of her CAT scan that was done earlier did show pulmonary embolism in her right upper lobe. I talk with the patient. She did come in because she had pain go up her back and it did go and settle in the right upper lobe area. It is feeling better now. She still has dyspnea. But she states she has been having dyspnea for 3 to 4 weeks. She states sometimes she will have to stop and breathe through her mouth. She has not been having any bleeding issues. No blood or black stools. No nasal bleeding. No recent trauma or surgery. Patient has allergies to codeine and tetanus but no other meds. She is a smoker and was counseled to quit. She denies hemoptysis or coughing at this time. PFSH PFSH Medical History Chronic pain GERD (gastroesophageal reflux disease) History of skin cancer Hypertension Migraines Smoker Home Medications hydrochlorothiazide 25 mg tablet 25 mg PO DAILY 07/08/20 [History Last Taken 02/02/22] lisinopril 10 mg tablet 40 mg PO DAILY 07/08/20 [History Last Taken 02/02/22] meloxicam 15 mg tablet 15 mg PO DAILY 01/29/22 [History Last Taken 02/02/22] apixaban 5 mg tablet (Eliquis) 5 mg PO BID #74 tabs 03/17/22 [Rx Last Taken Unknown] lidocaine 4 % topical patch (Lidocaine Pain Relief) 1 patch topical BID PRN pain #30 ea 03/17/22 [Rx Last Taken Unknown] methocarbamol 500 mg tablet 500 mg PO 4X/DAY PRN PRN Muscle pain/spasm #40 tabs 03/17/22 [Rx Last Taken Unknown] Allergy/AdvReac Type Severity Reaction Status Date / Time codeine Allergy Upset Verified 03/17/22 21:18 Stomach Tetanus Vaccines and Toxoid Allergy NEEDS Verified 03/17/22 21:18 FOLLOW-UP Family History Other COPD (chronic obstructive pulmonary disease) Surgical History Hx of hysterectomy Social History Smoking Status: Heavy Smoker (>10/day) ROS ROS ED Constitutional Constitutional ED: Denies chills or fever(s) Eyes Eyes: Denies change in vision ENT ENT ED: Denies rhinorrhea or sore throat Cardiovascular Cardiovascular: Reports chest pain; Denies palpitations or racing heartbeat Respiratory/Chest Respiratory/Chest: Reports dyspnea; Denies cough Gastrointestinal Gastrointestinal: Denies melena Genitourinary Genitourinary ED: Denies hematuria Musculoskeletal Musculoskeletal: Denies myalgias Integumentary Denies rash Neurologic Neurologic: Denies headache(s) Endocrine Endocrinology: Denies polydipsia or polyuria Hematologic/Lymphatic Hematologic/Lymphatic: Denies easy bleeding or easy bruising Allergic/Immunologic Allergic/Immunologic ED: Denies urticaria EXAM Physical Exam Const Vital Signs: 03/17/22 21:16 03/17/22 21:23 03/17/22 21:24 Temperature 97.8 F Temperature Source Temporal Pulse Rate 88 87 Respiratory Rate 16 18 Respiratory Effort Normal Non-Labored Respiratory Depth Normal Respiratory Pattern Normal Blood Pressure 124/58 H 150/65 H Blood Pressure Mean 80 93 Pulse Ox 100 98 Oxygen Delivery Method Room Air Room Air Positive well nourished and well developed General Appearance ED: well developed and NAD; Negative for pallor HEENT Reports moist mucous membranes Eyes EOMs intact bilaterally Neck no meningeal signs and no JVD Resp normal respiratory effort and clear to auscultation bilaterally Cardio regular rate and regular rhythm GI non-tender and non-distended GI Narrative: Abdomen is soft and nontender. Back/Spine no CVA tenderness and normal to inspection Neuro oriented x3 Psych mental status grossly normal Skin no wounds and skin turgor normal General Skin Exam: Negative for pallor MDM MDM MDM Narrative Medical decision making narrative: Patient had blood work done earlier this morning. I reviewed her CBC and electrolytes. She has no sign of renal insufficiency. No reason not to use Eliquis based on these. I also reviewed her reading of the CT. They do record an addendum. They did not record the specifics but we did get a phone call from the radiologist that showed that the CT of the chest abdomen pelvis did show a PE in the right upper lobe. With the patient's transient chest pain, dyspnea, PE on scan we will initiate anticoagulation therapy. I did discuss some of the side effects and risks of this medicine with the patient. We also discussed prolonged bleeding and bruising. We also discussed need to have evaluation if she has head injury while on the medicine. I will give initial dose here. We discussed that there is an increased dose for the first week. She will then need a refill of this medicine after a month so she will need to follow-up with her primary physician. They may do further work-up as an outpatient. Lab Data Attestation: I reviewed the patient's lab results. Discharge Plan Triage Chief Complaint: Shortness of Breath ED Provider: Anjel Chatman Dx/Rx/DC Orders Clinical Impression: Pulmonary embolism Instructions: Pulmonary Embolism Prescriptions: New Eliquis 5 mg tablet 5 mg PO BID Qty: 74 0RF Rx Instructions: 10 mg twice a day for the first week. Then 5 mg twice a day. No Action lisinopril 10 mg Tablet 40 mg PO DAILY hydrochlorothiazide 25 mg Tablet 25 mg PO DAILY meloxicam 15 mg tablet 15 mg PO DAILY methocarbamol 500 mg tablet 500 mg PO 4X/DAY PRN PRN (Reason: Muscle pain/spasm) Qty: 40 1RF lidocaine [Lidocaine Pain Relief] 4 % adhesive patch,medicated 1 patch topical BID PRN (Reason: pain) Qty: 30 1RF Primary Care Provider: Bryn Cardona Referrals: Bryn Cardona MD [Primary Care Provider] - 3-5 Days Disposition Disposition: Home, Self Care
[2022-03-17] MEDS: APIXABAN 5 MG TABLET 10 MG PO (21:58)
== END 2022-03-17 22:25 | disposition home or self-care (01) ==
PROVIDERS: Emergency Provider Emergency Medicine; PCP Family Medicine; Visit Provider Emergency Medicine
DX: I26.99 Other pulmonary embolism without acute cor pulmonale (principal); F17.200 Nicotine dependence, unspecified, uncomplicated; I10 Essential (primary) hypertension; G89.29 Other chronic pain; K21.9 Gastro-esophageal reflux disease without esophagitis; Z79.01 Long term (current) use of anticoagulants; Z79.899 Other long term (current) drug therapy
CPT/HCPCS: 99283

== ENCOUNTER 2022-10-21 12:44 | Emergency (ER) | payer MEDICARE, MEDICAID, SELFPAY ==
[2022-10-21 12:48] VITALS: BP 111/64; PULSE 65; RESP 13; TEMP 36.4; O2SAT 97; BMI 25.8
--- NOTE | 2022-10-21 13:31 | EDS_ITS ---
HPI History of Present Illness Chief Complaint: Syncope Informant: patient Onset/Context/Timing Onset: Today Context: Sudden Onset Timing: Intermittent and Lasts (Few seconds) Quality: Lightheaded Location: Generalized Worsened by: Bending over Relieved by: Nothing Narrative Narrative: Patient presents with syncopal episode that occurred today. Patient states she bent over and became lightheaded. Patient states she heard a humming in her ears. Patient states she fell to the floor. Patient does not think she passed out very long. Currently, patient denies any symptoms. Patient states she had a similar episode in February and was seen here at that time. Patient was diagnosed with a pulmonary embolus at that time. Patient was given a prescription for Eliquis. Patient states she completed the initial prescription for Eliquis but did not follow-up with her primary care physician or cardiology. PFSH PFS Medical History Chronic pain GERD (gastroesophageal reflux disease) History of skin cancer Hypertension Migraines Smoker Home Medications hydrochlorothiazide 25 mg tablet 25 mg PO DAILY 07/08/20 [History Last Taken 02/02/22] lisinopril 10 mg tablet 40 mg PO DAILY 07/08/20 [History Last Taken 02/02/22] Allergy/AdvReac Type Severity Reaction Status Date / Time codeine Allergy Upset Verified 10/21/22 12:46 Stomach Tetanus Vaccines and Toxoid AdvReac confusion Verified 10/21/22 12:46 Family History Other COPD (chronic obstructive pulmonary disease) Surgical History Hx of hysterectomy Social History Smoking Status: Heavy Smoker (>10/day) ROS ROS ED Constitutional Constitutional ED: Denies chills or fever(s) Eyes Eyes: Denies blurry vision or change in vision ENT ENT ED: Denies rhinorrhea or sore throat Cardiovascular Cardiovascular: Denies chest pain or palpitations Respiratory/Chest Respiratory/Chest: Denies cough or dyspnea Gastrointestinal Gastrointestinal: Denies nausea or vomiting Genitourinary Genitourinary ED: Denies dysuria or hematuria Musculoskeletal Musculoskeletal: Denies back pain or neck pain Integumentary Denies abscess or rash Neurologic Neurologic: Denies headache(s) or weakness Allergic/Immunologic Allergic/Immunologic ED: Denies mouth swelling or urticaria EXAM Physical Exam Const Vital Signs: 10/21/22 12:48 10/21/22 12:52 Temperature 97.6 F L Temperature Source Oral Pulse Rate 65 Respiratory Rate 13 Respiratory Effort Normal Non-Labored Respiratory Pattern Normal Blood Pressure 111/64 Blood Pressure Mean 79 Pulse Ox 97 Oxygen Delivery Method Room Air Positive well nourished and well developed General Appearance ED: well developed and NAD HEENT Reports moist mucous membranes Neck supple and no JVD Resp normal respiratory effort and clear to auscultation bilaterally Cardio regular rate and regular rhythm GI normal to inspection, nondistended, normoactive bowel sounds and non-tender Palpation: soft Extremity normal to inspection General Extremety ED: Negative for edema or tenderness General Extremity: Negative for edema Neuro oriented x3, CN's II-XII intact bilaterally and no sensory deficits noted Sensorium / Orientation: alert Motor Exam: strength 5/5 throughout Psych mental status grossly normal Skin no rashes or lesions noted MDM MDM MDM Narrative Medical decision making narrative: Differential diagnosis includes cardiac dysrhythmia, cardiac ischemia, pulmonary embolism, electrolyte abnormality, anemia, intracranial bleeding, and stroke. CT scan of the brain will be obtained to assess for intracranial bleeding and stroke. CTA of the chest will be obtained to assess for pulmonary embolism and pneumonia. EKG will be obtained to assess for cardiac dysrhythmia and cardiac ischemia. CBC will be done to assess for leukocytosis and anemia. Basic metabolic profile will be obtained to assess for electrolyte abnormality and renal function. High-sensitivity troponin will be obtained to assess for cardiac ischemia. Lab Data Attestation: I reviewed the patient's lab results. Lab results narrative: CBC was reviewed and was within normal limits. PT with INR and PTT were reviewed. Basic metabolic profile was reviewed. BUN was slightly elevated at 23. Creatinine was normal. The remainder is within normal limits. High- sensitivity troponin was reviewed and was normal at 6. 2-hour repeat high- sensitivity troponin was normal at 7. Labs: Laboratory Results - last 24 hr 10/21/22 10/21/22 13:49 16:10 WBC 10.3 RBC 4.28 Hgb 12.7 Hct 38.8 MCV 90.7 MCH 29.7 MCHC 32.7 RDW Std Deviation 47.1 H RDW Coeff of Kirt 14.2 Plt Count 361 MPV 9.6 Immature Gran % (Auto) 0.500 Neut % (Auto) 73.9 H Lymph % (Auto) 11.8 L Rich % (Auto) 11.9 H Eos % (Auto) 1.1 Baso % (Auto) 0.8 Absolute Neuts (auto) 7.6 Absolute Lymphs (auto) 1.21 Nucleated RBC % 0 PT 13.5 INR 1.0 APTT 30.9 Sodium 139 Potassium 3.2 L Chloride 106 Carbon Dioxide 26.0 Anion Gap 7 BUN 23 H Creatinine 0.89 Estim Creat Clear Calc 38.68 Est GFR (MDRD) Af Amer 79 Est GFR (MDRD) Non-Af 65 BUN/Creatinine Ratio 25.8 H Glucose 115 H Calcium 8.8 Troponin I High Sens 6 7 Radiography CTA PE Study: No Evidence of PE and No Evidence of Dissection Diagnostic Testing: Clinical Impression(s) from Imaging Studies Brain CT 10/21/22 13:35 IMPRESSION: No acute intracranial process. Electronically Signed: Jonathan Gregorio MD at 15:07 EDT , Chest CTA 10/21/22 13:35 IMPRESSION: 1. No evidence of pulmonary embolism. 2. No focal acute infiltrates or pleural effusions. Electronically Signed: Jonathan Gregorio MD at 15:19 EDT , CT scan of the brain was obtained. There is no acute intracranial abnormality. This was interpreted by the radiologist and was also independently reviewed by myself. CTA of the chest was obtained. There is no evidence of pulmonary embolism. There is no aortic dissection. There is no acute infiltrate or effusion. This was interpreted by the radiologist and was also independently reviewed by myself. EKG Initial EKG: Attestation: I personally reviewed and interpreted this EKG as follows: Interpretation: Sinus Rhythm (70) and No Acute Injury Pattern Comments: EKG was obtained. On my independent interpretation, it showed a normal sinus rhythm with a rate of 70. CO interval, QRS interval, and QTc intervals were all normal. [place] was normal. There are no acute ST or T wave changes. Prior EKG tracings: available for review Prior: Unchanged (03/17/2022) Treatment and Re-Evaluation :: Patient was advised of her findings. Patient feels better and wants to go home. Patient was instructed to follow-up with her primary care physician in 5 to 7 days for further evaluation. Patient was instructed return if worse in any way. Patient understood and was agreeable with the plan. All questions were answered. Discharge Plan Triage Chief Complaint: Syncope ED Provider: Wesley Rao Dx/Rx/DC Orders Clinical Impression: Dizziness, Syncope and collapse Instructions: ED Fainting, Uncertain Cause Prescriptions: No Action lisinopril 10 mg Tablet 40 mg PO DAILY hydrochlorothiazide 25 mg Tablet 25 mg PO DAILY Primary Care Provider: Bryn Cardona Referrals: Bryn Cardona MD [Primary Care Provider] - 3-5 Days Disposition Disposition: Home, Self Care
--- NOTE | 2022-10-21 13:35 | CT_ITS ---
INDICATION: Head injury EXAMINATION: CT BRAIN - CT Head or Brain W/O Contrast Injection TECHNIQUE: Multiple axial images were obtained of the head without intravenous contrast. A radiation dose optimization technique was used for this scan. IV Contrast dosage and agent: None. RADIATION DOSAGE (If Supplied By Facility): CTDIvol = ( 21.14 ) mGy, DLP = ( 1039.71 ) mGycm COMPARISON: No prior examinations are available for comparison. FINDINGS: BRAIN PARENCHYMA: No intra- or extra-axial hemorrhage. No evidence of acute infarct. No intracranial mass or mass effect. There is preservation of the hartley/white matter interface. Posterior fossa structures are unremarkable. Small low-density in the inferior left basal ganglia likely due to prominent vascular space orbits likely old lacunar infarct. Low-density in the medial aspect of the right cerebellum again likely due to prominent subdural space. CSF SPACES: Appropriate for age. No hydrocephalus. Basal cisterns are patent. CALVARIUM, SKULL BASE, PARANASAL SINUSES AND MASTOID AIR CELLS: Clear. No discrete lytic or blastic abnormalities. ORBITS: Both globes, extraocular muscles, optic nerves and retrobulbar fat appear unremarkable. ASPECTS Score for Acute Strokes: 10 CT/Brain/Head without Contrast IMPRESSION: No acute intracranial process. Electronically Signed: Jonathan Gregorio MD at 15:07 EDT ,
--- NOTE | 2022-10-21 13:35 | CT_ITS ---
STUDY: CTA CHEST REASON FOR EXAM: Female, 77 years old. Pulmonary embolism RADIATION DOSAGE (If Supplied By Facility): CTDIvol = ( 21.14 ) mGy, DLP = ( 1037.71 ) mGycm TECHNIQUE: The examination was performed with the intravenous administration of IV 100mL [id number]-[id number]. Post-processing of the angiographic images was performed, with multiplanar reformation and 3D reconstruction. Individualized dose optimization techniques were used for this CT. COMPARISON: No prior examinations are available for comparison. FINDINGS: Normal enhancement of the main pulmonary artery and right and left pulmonary arteries. Normal enhancement of the bilateral peripheral pulmonary arteries. There is no demonstrated pulmonary embolism. There is atherosclerotic calcification of the aortic arch. There is no demonstrated aortic dissection. Normal heart and pericardium. There are calcifications of the coronary arteries. Normal mediastinum. Normal hilar regions. Normal visualized trachea and bronchi. The lungs are well expanded. There are no pulmonary infiltrates. There are no pleural effusions. Normal chest wall structures. Normal osseous structures. The visualized portions of the upper abdomen demonstrate no acute process. CT/CTA Chest W/WO Contrast IMPRESSION: 1. No evidence of pulmonary embolism. 2. No focal acute infiltrates or pleural effusions. Electronically Signed: Jonathan Gregorio MD at 15:19 EDT ,
--- NOTE | 2022-10-21 13:53 | EKG12_ITS ---
Test Reason : SYNCOPE Blood Pressure : / mmHG Vent. Rate : 070 BPM Atrial Rate : 070 BPM P-R Int : 162 ms QRS Dur : 080 ms QT Int : 386 ms P-R-T Axes : 079 021 060 degrees QTc Int : 416 ms Normal sinus rhythm Normal ECG Confirmed by KAYE LOPEZ, SOUTH ([id number]), food editor JEAN-PIERRE BARRAZA ([id number]) on 11/30/2022 11:20:35 AM Referred By: Confirmed By:OBIE RESTREPO MD
[2022-10-21 13:58] LABS: Absolute Lymphocyte Count 1.21 X10^3/uL (0.83-4.51); Absolute Neutrophil Count 7.6 X10^3/uL (2.0-7.7); Basophil# 0.08 X10^3/uL; Basophil% 0.8 % (0-1); Eosinophil# 0.11 X10^3/uL; Eosinophils% 1.1 % (0-5); Hematocrit 38.8 % (37-47); Hemoglobin 12.7 g/dL (12.0-15.0); Lymphocyte # 1.21 X10^3/ul (0.83-4.51); Lymphocyte % 11.8 % (19-41); Mean Corp Hgb Conc 32.7 g/dL (32-36); Mean Corpuscular Hgb 29.7 pg (27.0-32.0); Mean Corpuscular Volume 90.7 fL (81-99); Mean Platelet Vol. 9.6 fl (6.2-12.0); Monocyte# 1.22 X10^3/uL; Monocyte% 11.9 % (0-10); NRBC Flagged by Analyzer 0 % (0-5); Neutrophil # 7.58 X10^3/uL (2.7-7.7); Neutrophil % 73.9 % (47-70); Platelet Count 361 K/mm3 (150-450); RBC Distribution Width CV 14.2 % (11.6-14.6); RBC Distribution Width SD 47.1 fl (35.1-43.9); Red Blood Count 4.28 M/mm3 (4.2-5.4); White Blood Count 10.3 K/mm3 (4.4-11.0)
[2022-10-21 14:17] LABS: Prothrombin Time (Protime)PT. 13.5 SECONDS (11.7-14.9)
[2022-10-21 14:18] LABS: Partial Thromboplast Time 30.9 Seconds (24.1-36.2)
[2022-10-21 14:26] LABS: Anion Gap 7 (5-15); BUN 23 mg/dL (7-18); BUN/Creat Ratio 25.8 RATIO (10-20); Calcium,Total 8.8 mg/dL (8.5-10.1); Chloride 106 mmol/L (98-107); Creatinine, Serum 0.89 mg/dL (0.55-1.02); EST Glomerular Filtration Rate 65 mL/min (>60); Est Glom Filt Rate - Afr Amer 79 mL/min (>60); Estimated Creatinine Clearance 38.68 ml/min; Glucose 115 mg/dL (74-106); Potassium 3.2 mmol/L (3.5-5.1); Sodium Level 139 mmol/L (136-145); Troponin-I HS (w/2H Reflex) 6 pg/mL (3.0-54.0)
[2022-10-21 14:45] VITALS: RESP 18
[2022-10-21 15:53] LABS: Reflex Troponin-HS? (from REC) Y
[2022-10-21 16:36] LABS: Troponin-I HS 7 pg/mL (3.0-54.0)
[2022-10-21 16:45] VITALS: RESP 18
== END 2022-10-21 17:03 | disposition home or self-care (01) ==
PROVIDERS: Emergency Provider Emergency Medicine; PCP Family Medicine; Visit Provider Emergency Medicine
DX: R55 Syncope and collapse (principal); R42 Dizziness and giddiness; F17.200 Nicotine dependence, unspecified, uncomplicated; I10 Essential (primary) hypertension; Z90.710 Acquired absence of both cervix and uterus
CPT/HCPCS: 70450; 71275; 80048; 84484; 85025; 85610; 85730; 93005; 99285; Q9967; A4216

== ENCOUNTER 2024-03-14 20:24 | Emergency (ER) | payer MEDICARE, MEDICAID, SELFPAY ==
[2024-03-14 20:25] VITALS: BP 154/86; PULSE 70; RESP 16; TEMP 36.6; O2SAT 95; BMI 28.4
--- NOTE | 2024-03-14 21:01 | RAD_ITS ---
EXAM: XR PELVIS, 1 OR 2 VIEWS CLINICAL INDICATION: pain TECHNIQUE: Frontal view of the pelvis. COMPARISON: No relevant prior studies available. FINDINGS: BONES/JOINTS: There are severe degenerative changes in the left hip with loss of hip joint space, sclerosis and subchondral cysts. No displaced fracture. Sacroiliac joints are unremarkable. No widening of the pubic symphysis. SOFT TISSUES: Unremarkable. No soft tissue swelling or gas. RAD/Pelvis 1 or 2 Views IMPRESSION: 1. No acute osseous abnormalities. 2. 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 Electronically Signed: Edmar Warren MD at 23:44 EST ,
--- NOTE | 2024-03-14 21:05 | EX.ED.DYSGE1 ---
HPI <LINDSEY Wright - Last Filed: 03/14/24 22:07> History of Present Illness Chief Complaint: Lower Extremity Injury Narrative Narrative: Patient 6-year-old female history of hypertension [facility] with complaints of left hip and leg pain. Pay states that approximate 1.5 hours ago, she flopped onto the couch and then she had significant pain to the left hip, left leg. Patient states that she could not get up and had a call the ambulance. She has had history of hip pain however nothing like this. Denies any fever chills nausea or vomiting. PFSH <LINDSEY Wright - Last Filed: 03/14/24 22:07> PFS Medical History Chronic pain GERD (gastroesophageal reflux disease) History of skin cancer Hypertension Migraines Smoker Home Medications ?Medication ?Instructions ?Recorded ?Last Taken ?Type hydrochlorothiazide 25 mg tablet 25 mg PO DAILY 07/08/20 02/02/22 History hydrocodone-acetaminophen 5-325mg 1 tab PO Q6H PRN pain 6 days #14 03/14/24 Unknown Rx 5mg-325mg tabs lisinopril 40 mg tablet 40 mg PO DAILY 03/14/24 Unknown History Allergy/AdvReac Type Severity Reaction Status Date / Time codeine Allergy Upset Verified 03/14/24 20:25 Stomach Tetanus Vaccines and Toxoid AdvReac confusion Verified 03/14/24 20:25 Family History Other COPD (chronic obstructive pulmonary disease) Surgical History Hx of hysterectomy Social History Smoking Status: Heavy Smoker (>10/day) ROS <LINDSEY Wright - Last Filed: 03/14/24 22:07> ROS ED ROS Narrative Constitutional: Negative for fever, chills, weight loss, weakness Eyes: Negative for vision loss, vision change, double vision ENT: Negative for any sore throat, ear pain, congestion Cardiovascular: Negative for any chest pain, tightness, palpitations Respiratory: Negative for any cough, sputum production, hemoptysis, dyspnea, dyspnea on exertion, orthopnea Gastrointestinal: Negative for any abdominal pain, nausea, vomiting, diarrhea, constipation, blood in stool, blood in vomit : Negative for any urinary frequency, dysuria, retention, blood in urine Muscle skeletal: Negative for any neck pain, back pain. Positive left hip, left thigh pain Neurological: Negative for any headache, syncope, dizziness Skin: Negative for any rashes, itching, abrasions, lacerations Psychiatric: Negative for any depression, anxiety, stress, suicidal ideation, homicidal ideation Hematologic: Negative for any excessive bruising, easy bleeding EXAM <LINDSEY Wright - Last Filed: 03/14/24 22:07> Physical Exam Narrative Exam Narrative: Vital signs reviewed. On my initial evaluation, patient was laying on her back, the lower legs were flexed. HEET: Head normocephalic atraumatic, TMs clear bilaterally. Posterior pharynx is clear, moist mucous membranes. Nares clear bilaterally. Neck: Supple with no lymphadenopathy or tenderness. No signs of meningismus. Cardiac: Regular rate and rhythm no murmurs gallops or rubs, equal peripheral pulses bilaterally. Respiratory: Lungs clear to auscultation bilaterally. No chest tenderness. Abdomen: Soft, nontender, nondistended. No abdominal bruit or pulsatile masses. No hepatosplenomegaly Extremities: Pain had significant pain on palpation of left hip, left thigh. She was in a flexed position, whenever I would try to straighten out the left leg she had severe pain, I could not flex or extend the hip secondary to pain. Pain on palpation. No obvious shortening or rotation. +2 pedal pulse. Neuro: Cranial nerves II through XII intact, no focal neurological deficits. Skin: Clean dry and intact with no rash, purpura, petechiae, vesicles or pustules. Backs/flank: No CVA tenderness, no midline spinal tenderness, no deformity. Psych: Normal mood and affect. No SI, HI or acute psychosis. Const Vital Signs: 03/14/24 20:25 03/14/24 22:25 Temperature 98 F Temperature Source Temporal Pulse Rate 70 62 Respiratory Rate 16 16 Blood Pressure 154/86 H 121/53 H Blood Pressure Mean 108 75 Pulse Ox 95 92 Oxygen Delivery Method Room Air <Dr. Arun Martinez MD - Last Filed: 03/14/24 23:54> Physical Exam Const Vital Signs: 03/14/24 20:25 03/14/24 22:25 Temperature 98 F Temperature Source Temporal Pulse Rate 70 62 Respiratory Rate 16 16 Blood Pressure 154/86 H 121/53 H Blood Pressure Mean 108 75 Pulse Ox 95 92 Oxygen Delivery Method Room Air [facility] <Humberto Simms LINDSEY - Last Filed: 03/14/24 22:07> [facility] Radiography Diagnostic Testing: Clinical Impression(s) from Imaging Studies Pelvis X-Ray 03/14/24 21:01 IMPRESSION: 1. No acute osseous abnormalities. 2. 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 Electronically Signed: Edmar Warren MD at 23:44 EST , Femur X-Ray 03/14/24 21:40 IMPRESSION: Severe degenerative changes in the hip with total loss of joint space, sclerosis and subchondral cysts. There are no acute osseous abnormalities. Electronically Signed: Edmar Warren MD at 23:43 EST , Treatment and Re-Evaluation :: Differential diagnosis includes however is not limited to: Hip fracture, hip contusion, femur fracture, femur contusion, hip strain Patient appears generally well, vital signs are stable, patient is nontoxic-appearing. Presenting to the emergency department with complaints of pain to the left hip, left thigh after sitting down on a chair. Patient does have known pain to this left hip. Patient did receive x-rays of the left hip, left femur. All radiologic examinations were read, reviewed by the emergency department attending. From these reads, a plan of care will be put in place. Patient was given IV morphine, IV Zofran. Patient on reevaluation did have improvement. Patient's x-rays of the left femur were unremarkable, left hip did show significant arthritic changes, I did look at previous from 2 years ago, did look similar however patient has significant pain with movement, patient will receive a CT scan of the left hip secondary to osteoarthritis and significant pain. <Dr. Arun Martinez MD - Last Filed: 03/14/24 23:54> [facility] MDM Narrative Medical decision making narrative: I have personally performed a face to face assessment of the patient and have reviewed the RADHA Note. I performed a substantive portion of the visit including all aspects of the following. My mariee findings include: History is [78-year-old female has chronic left hip pain from arthritis. Has never had any hip surgery. Patient states she went to sit down tonight the couch had sudden onset of left hi thigh pain and left thigh pain. No recent falls. No other trauma. No fever, redness or swelling.] Exam is [well-appearing 78-year-old female. Vital signs are stable. Afebrile. HEENT exam unremarked. Neck nontender. Lungs clear. Heart regular rhythm no murmur. Chest wall and ribs nontender. Abdomen soft nontender. Left hip has tenderness. Mild pain with range of motion. No shortening. No deformity. No angulation. Knee left lower leg ankle and foot are nontender. Normal dorsi plantarflexion. Normal DP pulse. Normal sensation. No redness or warmth or swelling to the left hip. Right lower extremity and both upper extremities are unremarkable. Back is nontender. Neurologically she is awake and alert. Answer questions following commands.] Medical Decision Making [78-year-old with some chronic hip pain most likely from arthritis. Tonight sat down forcefully on the couch and had sudden onset of left hip and thigh pain. X-rays being obtained.] Other additions or changes: [Due to the x-ray results we will see an obvious fracture but there is so much arthritic changes most of which appears to be chronic we will obtain a CT to rule out fracture. If there is no fracture she will be ambulated if she can ambulate with a walker patient feels comfortable being discharged home. She was given morphine for pain.] CT hips been done. Awaiting formal radiology read. Checked out to the overnight physician. If it is just arthritis and severe degenerative hip disease should be discharged to home with Noxapater for pain. Patient was able to ambulate with a walker. Patient is doing well at 11:50 PM. She is up drinking water. Awaiting CT results. History & Record Review Discussion w/independent historian: Patient Radiography Diagnostic Testing: Clinical Impression(s) from Imaging Studies Pelvis X-Ray 03/14/24 21:01 IMPRESSION: 1. No acute osseous abnormalities. 2. 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 Electronically Signed: Edmar Warren MD at 23:44 EST , Femur X-Ray 03/14/24 21:40 IMPRESSION: Severe degenerative changes in the hip with total loss of joint space, sclerosis and subchondral cysts. There are no acute osseous abnormalities. Electronically Signed: Edmar Warren MD at 23:43 EST , Left hip x-ray shows severe arthritis of the left hip. No obvious fracture. There is significant degenerative disease of the acetabulum, femoral head and neck. It is shortened but is been that way on prior x-rays. Interpreted by myself. left femur x-ray multiple views interpreted by myself again shows significant arthritis of the hip, femoral head region. No obvious fracture. Interpreted by myself Discharge Plan Triage Chief Complaint: Lower Extremity Injury ED Midlevel Provider: Humberto Simms ED Provider: Arun Martinez Dx/Rx/DC Orders Clinical Impression: Acute hip pain, Hip osteoarthritis Instructions: ED Osteoarthritis Prescriptions: New hydrocodone-acetaminophen 5-325 mg tablet 1 tab PO Q6H PRN (Reason: pain) 6 Days Qty: 14 0RF No Action hydrochlorothiazide 25 mg Tablet 25 mg PO DAILY lisinopril 40 mg tablet 40 mg PO DAILY Primary Care Provider: Bryn Cardona Referrals: Bryn Cardona MD [Primary Care Provider] - As Needed Erik Bowers DO [Med Staff - Active Staff] - As soon as possible Activity Restrictions/Additional Instructions: You have a send severely arthritic left hip. Follow-up with orthopedics. You can discuss with them a hip replacement. Also possible joint injection with steroids. Ice. Noxapater as needed for pain for your hip. Plenty of fluids and fiber to prevent constipation or even a stool softener anytime you are taking pain medication. Print Language: Sinhala Disposition Disposition: Home, Self Care
[2024-03-14] MEDS: Ondansetron 4 MG/2 ML Vial IV (21:17)
[2024-03-14] MEDS: Morphine 4 MG/ML Syringe IV (21:17)
--- NOTE | 2024-03-14 21:40 | RAD_ITS ---
EXAM: XR LEFT FEMUR, 2 VIEWS CLINICAL INDICATION: pain TECHNIQUE: Frontal and lateral views of the left femur. COMPARISON: No relevant prior studies available. FINDINGS: BONES/JOINTS: There is severe degenerative change in the left hip with loss of hip joint space. There is sclerosis and subchondral cysts present. There is mild narrowing of the knee joint space. No acute fracture. No subluxation. Normal alignment. SOFT TISSUES: Unremarkable. No soft tissue swelling or gas. No radiopaque foreign body. RAD/Femur Min 2 Views IMPRESSION: Severe degenerative changes in the hip with total loss of joint space, sclerosis and subchondral cysts. There are no acute osseous abnormalities. Electronically Signed: Edmar Warren MD at 23:43 EST ,
--- NOTE | 2024-03-14 21:58 | CT_ITS ---
EXAM: CT LEFT LOWER EXTREMITY WITHOUT INTRAVENOUS CONTRAST CLINICAL INDICATION: hip pain TECHNIQUE: Helically acquired images were obtained of the left lower extremity without intravenous contrast. 2-D reformats were performed by the technologist. This CT exam was performed using one or more of the following dose reduction techniques: automated exposure control, adjustment of the mA and/or kV according to patient size, and/or use of iterative reconstruction technique. COMPARISON: No relevant prior studies available. FINDINGS: BONES/JOINTS: There is a total loss of hip joint space. There are large subchondral cysts in the femoral head and superior acetabulum. There is sclerosis of the acetabulum. There are osteophytes present. No acute fracture. No subluxation. Normal alignment. SOFT TISSUES: Unremarkable. No soft tissue swelling or gas. No radiopaque foreign body. CT/Extremity Lower without Contra IMPRESSION: Severe degenerative changes in the left hip with loss of hip joint space, sclerosis and subchondral cysts. There are no acute osseous abnormalities. Electronically Signed: Edmar Warren MD at 23:53 EST ,
[2024-03-14 22:25] VITALS: BP 121/53; PULSE 62; RESP 16; O2SAT 92
== END 2024-03-15 00:29 | disposition home or self-care (01) ==
PROVIDERS: Emergency Provider Emergency Medicine; PCP Family Medicine; Visit Provider Emergency Medicine
DX: M16.12 Unilateral primary osteoarthritis, left hip (principal); I10 Essential (primary) hypertension; Z90.710 Acquired absence of both cervix and uterus; M25.552 Pain in left hip; X58.XXXA Exposure to other specified factors, initial encounter; Y93.89 Activity, other specified; Z79.899 Other long term (current) drug therapy; F17.200 Nicotine dependence, unspecified, uncomplicated
CPT/HCPCS: 72170; 73552; 73700; 96374; 96375; 99285; A4216; J2405